=== PATIENT | female | born 1985 | race African-American/Black ===

== ENCOUNTER 2019-08-07 15:55 | Outpatient (CLI) | payer OTHER, MEDICAID, SELFPAY ==
--- NOTE | ~2019-08-07 | US_ITS ---
EXAMINATION: US OB follow up DATE: 08/07/2019 16:29 INDICATION: Follow-up subchorionic hemorrhage. TECHNIQUE: Real-time transabdominal obstetric ultrasound. FINDINGS: Comparison to multiple prior studies sequentially, with oldest reviewed study dated 2018. There is a single living fetus in vertex presentation. The placenta is posterior without placenta pr evia. Placental margin to the cervix is 1.7 cm. cardiac activity and movement is noted with a heart rate of 169 beats per minute. T he amniotic fluid volume is normal. SOFIYA measures 10.2 cm. No evidence for residual subchorionic hemor rhage on the current study. The following biometric data were obtained: BPD: 32mm corresponds to gestational age 16 weeks 0 days. Head circumference: 119mm corresponds to gestational age 15 weeks 6 days. Abdominal circumference: 96mm corresponds to gestational age 15 weeks 5 days. Femur length: 19mm corresponds to gestational age 15 weeks 4 days. Head circumference to abdominal circumference ratio: 1.23 normal for gestational age is 1.06-1.35. Estimated weight: 131grams +/- 20grams.] IMPRESSION: 1. Single living fetus in vertex presentation presentation with an estimated gestational age of 15 w eeks 5 days by inititial ultrasound. Appropriate interval growth. 2. Low-lying posterior placenta measuring 1.7 cm to the cervix. 3: Interval resolution of subchorionic hemorrhage.. Reviewed, dictated and finalized at location A. [facility] PROFESSOR OF GEOLOGY IMPRESSION: 1. Single living fetus in vertex presentation presentation with an estimated g estational age of 15 weeks 5 days by inititial ultrasound. Appropriate interva l growth. 2. Low-lying posterior placenta measuring 1.7 cm to the cervix. 3: Interval resolution of subchorionic hemorrhage..
== END 2019-08-07 15:56 | disposition home or self-care (01) ==
PROVIDERS: PCP Family Medicine; Visit Provider Obstetrics & Gynecology
DX: O36.8911 Maternal care for other specified fetal problems, first trimester, fetus 1 (principal); O44.42 Low lying placenta NOS or without hemorrhage, second trimester; Z3A.15 15 weeks gestation of pregnancy
CPT/HCPCS: 76816

== ENCOUNTER 2019-12-18 10:20 | Outpatient (CLI) | payer OTHER, MEDICAID, SELFPAY ==
[2019-12-18 10:45] VITALS: BP 133/89; PULSE 91
[2019-12-18 11:01] VITALS: BP 138/82; PULSE 92
[2019-12-18 11:17] LABS: Basophils Percent Auto 0.3 % (0.2-1.2); Eosinophils Absolute Auto 0.2 K/mm3 (0-0.3); Eosinophils Percent Auto 2.5 % (0-4.4); Hematocrit 32.7 % (37.0-47.0); Hemoglobin 10.2 g/dL (12.0-15.0); Immature Granulocyte Absolute 0.04 K/mm3 (0.00-0.031); Immature Granulocyte Percent A 0.6 % (0-0.5); Lymphocytes Absolute Auto 1.78 K/mm3 (0.9-3.2); Lymphocytes Percent Auto 25.9 % (18.3-44.2); Mean Corpuscular HGB Conc 31.2 g/dl (32-36); Mean Corpuscular Hemoglobin 27.6 pg (26-34); Mean Corpuscular Volume 88.4 fl (80-100); Mean Platelet Volume 9.5 fl (7.4-10.4); Monocytes Absolute Auto 0.9 K/mm3 (0.1-0.6); Monocytes Percent Auto 13.5 % (2.6-8.5); Neutrophils Absolute Auto 3.9 K/mm3 (1.3-6.7); Neutrophils Percent Auto 57.2 % (45.5-73.1); Platelet Count Result 245 k/mm3 (150-375); Red Cell Distribution Width 14.6 % (11.5-14.5); White Blood Count 6.9 K/mm3 (4.5-10.0)
[2019-12-18 11:31] LABS: Alanine Aminotransferase 8 U/L (4-35); Albumin Level 3.4 g/dL (3.5-5.1); Alkaline Phosphatase 70 U/L (38-126); Aspartate Amino Transferase 23 U/L (14-36); Bilirubin,Total 0.3 mg/dL (0.2-1.3); Blood Urea Nitrogen 2 mg/dL (7-17); Calcium 8.9 mg/dL (8.4-10.2); Carbon Dioxide 26 mmol/L (22-30); Chloride 105 mmol/L (98-107); Estimated Glomerular Filt Rate > 60; Glucose 76 mg/dL (65-105); Potassium 4.1 mmol/L (3.4-5.0); Sodium 136 mmol/L (137-145); Uric Acid 3.4 mg/dL (2.5-7.5)
[2019-12-18 12:10] LABS: Creatinine Urine 129.4 mg/dL; Total Protein Urine Random 10 mg/dL
[2019-12-18 12:36] VITALS: BP 148/86; PULSE 92
[2019-12-18 12:44] LABS: Add Urine Microscopic? YES; Appearance Urine Cloudy (Clear); Bacteria Urine 1+ /hpf; Bilirubin Urine Negative (Negative); Blood Urine Negative (Negative); Color Urine Yellow (Yellow); Glucose Urine UA Negative (Negative); Ketones Urine Negative (Negative); Leukocyte Esterase Ur Negative LEU/UL (NEGATIVE); Mucus Urine Rare /lpf; Nitrate Urine Negative (Negative); Protein Urine 1+ mg/dL (Negative); RBC Urine 0-2 /hpf (0-2); Specific Grav Ur 1.017 (1.001-1.035); Squamous Epithelial Cell Urine Many /hpf (Few); Transitional Epi Cells Urine Rare /hpf (None Seen); Urobilinogen Urine Negative mg/dL (<2.0)
--- NOTE | 2019-12-18 12:53 | PC.NURSE ---
Dr Garcia notified of normal lab results and reactive NST and BP's. 24 hour urine ordered.
--- NOTE | 2019-12-18 13:08 | PM.OBTRLD ---
OB - Triage/Final Diagnosis Evaluation Laboratory results: Laboratory Tests 12/18/19 12/18/19 12/18/19 11:08 11:08 11:44 WBC 6.9 RBC 3.70 L Hgb 10.2 L Hct 32.7 L MCV 88.4 MCH 27.6 MCHC 31.2 L RDW 14.6 H Plt Count 245 MPV 9.5 Immature Gran % (Auto) 0.6 H Neut % (Auto) 57.2 Lymph % (Auto) 25.9 [place] % (Auto) 13.5 H Eos % (Auto) 2.5 Baso % (Auto) 0.3 Lymph # (Auto) 1.78 [place] # (Auto) 0.9 H Eos # (Auto) 0.2 Baso # (Auto) 0.0 Abs Immat Gran (auto) 0.04 H Absolute Neuts (auto) 3.9 Absolute Nucleated RBC 0.0 Nucleated RBC % 0.0 Sodium 136 L Potassium 4.1 Chloride 105 Carbon Dioxide 26 BUN 2 L Creatinine 0.40 L Estim Creat Clear Calc Not Reportable Estimated GFR > 60 Glucose 76 Uric Acid 3.4 Calcium 8.9 Total Bilirubin 0.3 AST 23 ALT 8 Alkaline Phosphatase 70 Total Protein 6.0 L Albumin 3.4 L Urine Color Yellow Urine Appearance Cloudy H Urine pH 6.0 Ur Specific Theodore 1.017 Urine Protein 1+ H Urine Glucose (UA) Negative Urine Ketones Negative Ur Blood (Man) Negative Urine Nitrate Negative Urine Bilirubin Negative Urine Urobilinogen Negative Ur Leukocyte Esterase Negative Urine RBC 0-2 Urine WBC 7-9 H Ur Squamous Epith Cells Many H Ur Transition Epith Cell Rare Urine Bacteria 1+ H Urine Mucus Rare U Random Total Protein Urine Creatinine 12/18/19 11:44 WBC RBC Hgb Hct MCV MCH MCHC RDW Plt Count MPV Immature Gran % (Auto) Neut % (Auto) Lymph % (Auto) [place] % (Auto) Eos % (Auto) Baso % (Auto) Lymph # (Auto) [place] # (Auto) Eos # (Auto) Baso # (Auto) Abs Immat Gran (auto) Absolute Neuts (auto) Absolute Nucleated RBC Nucleated RBC % Sodium Potassium Chloride Carbon Dioxide BUN Creatinine Estim Creat Clear Calc Estimated GFR Glucose Uric Acid Calcium Total Bilirubin AST ALT Alkaline Phosphatase Total Protein Albumin Urine Color Urine Appearance Urine pH Ur Specific Theodore Urine Protein Urine Glucose (UA) Urine Ketones Ur Blood (Man) Urine Nitrate Urine Bilirubin Urine Urobilinogen Ur Leukocyte Esterase Urine RBC Urine WBC Ur Squamous Epith Cells Ur Transition Epith Cell Urine Bacteria Urine Mucus U Random Total Protein 10 Urine Creatinine 129.4 Vital signs: Vital Signs - 24 hr 12/18/19 10:45 12/18/19 11:01 12/18/19 12:36 Pulse Rate 91 92 92 Blood Pressure 133/89 138/82 148/86 H Final Diagnosis (1) Edema during : Code(s): O12.00 - Gestational edema, unspecified trimester Status: Acute (2) HTN in , chronic: Code(s): O10.919 - Unspecified pre-existing hypertension complicating , unspecified trimester Status: Acute
== END 2019-12-18 12:50 | disposition home or self-care (01) ==
LOC: ANHOBOP 10:26 → ANHOBPP 10:28
PROVIDERS: PCP Family Medicine; Visit Provider Obstetrics & Gynecology
DX: O13.9 Gestational [pregnancy-induced] hypertension without significant proteinuria, unspecified trimester (principal); Z3A.00 Weeks of gestation of pregnancy not specified
CPT/HCPCS: 36415; 59025; 80053; 81001; 82570; 84156; 84550; 85025; 87086; 99199

== ENCOUNTER 2019-12-20 22:39 | Observation (INO) | payer OTHER, MEDICAID, SELFPAY ==
[2019-12-20 22:52] VITALS: BMI 41.7
[2019-12-20 23:00] VITALS: BP 146/92; PULSE 84
[2019-12-20 23:31] VITALS: BP 157/100; PULSE 91
[2019-12-20 23:43] VITALS: PULSE 82
[2019-12-20] MEDS: LABETALOL HCL 100 MG TABLET 200 MG PO (23:43)
--- NOTE | 2019-12-20 23:59 | OBADM ---
This patient, Leanne Lopez, admitted to the OB room OB Post 117 for observation. Patient/family oriented to hospital policies and general routines including ID bracelet, bed and alarms, visiting hours, pain management, procedures, bathroom and other care routines, personal items, smoking policy, room service/diet, and visiting hours. Patient/Family are encouraged to report perceived risks to care and to ask questions if they do not understand what they are told or what they should do.
[2019-12-21] VITALS (8 sets, daily range): BP systolic 110–152; BP diastolic 61–104; PULSE 86–92
[2019-12-21] MEDS: LABETALOL HCL 100 MG TABLET PO (01:50)
--- NOTE | 2019-12-31 07:51 | PM.OBTRLD ---
OB - Triage/Final Diagnosis Final Diagnosis (1) Vaginal bleeding during : Code(s): O46.90 - Antepartum hemorrhage, unspecified, unspecified trimester Status: Acute
== END 2019-12-21 03:22 | disposition home or self-care (01) ==
PROVIDERS: Admitting Provider Family Medicine; PCP Family Medicine; Visit Provider Family Medicine
DX: O46.93 Antepartum hemorrhage, unspecified, third trimester (principal); Z3A.35 35 weeks gestation of pregnancy
CPT/HCPCS: A9270; G0378; G0379

== ENCOUNTER 2019-12-31 22:00 | Outpatient (CLI) | payer OTHER, MEDICAID, SELFPAY ==
[2019-12-31 23:25] VITALS: BP 138/110; PULSE 90
== END 2019-12-31 23:25 | disposition home or self-care (01) ==
PROVIDERS: PCP Family Medicine; Visit Provider Obstetrics & Gynecology
DX: O42.90 Premature rupture of membranes, unspecified as to length of time between rupture and onset of labor, unspecified weeks of gestation (principal); Z3A.00 Weeks of gestation of pregnancy not specified
CPT/HCPCS: 59025; 84112

== ENCOUNTER 2020-01-08 11:04 | Outpatient (CLI) | payer OTHER, MEDICAID, SELFPAY ==
[2020-01-08 11:20] VITALS: BP 165/95; PULSE 92
[2020-01-08 12:39] VITALS: PULSE 90
[2020-01-08] MEDS: LABETALOL HCL 100 MG TABLET 300 MG PO (12:39)
[2020-01-08 13:10] LABS: Basophils Percent Auto 0.1 % (0.2-1.2); Eosinophils Absolute Auto 0.1 K/mm3 (0-0.3); Eosinophils Percent Auto 1.6 % (0-4.4); Hematocrit 33.8 % (37.0-47.0); Hemoglobin 10.6 g/dL (12.0-15.0); Immature Granulocyte Absolute 0.08 K/mm3 (0.00-0.031); Immature Granulocyte Percent A 1.2 % (0-0.5); Lymphocytes Absolute Auto 1.58 K/mm3 (0.9-3.2); Lymphocytes Percent Auto 23.1 % (18.3-44.2); Mean Corpuscular HGB Conc 31.4 g/dl (32-36); Mean Corpuscular Hemoglobin 28.3 pg (26-34); Mean Corpuscular Volume 90.1 fl (80-100); Mean Platelet Volume 9.9 fl (7.4-10.4); Monocytes Percent Auto 14.8 % (2.6-8.5); Neutrophils Absolute Auto 4.1 K/mm3 (1.3-6.7); Neutrophils Percent Auto 59.2 % (45.5-73.1); Platelet Count Result 237 k/mm3 (150-375); Red Blood Count 3.75 M/mm3 (4.2-5.4); Red Cell Distribution Width 15.2 % (11.5-14.5); White Blood Count 6.8 K/mm3 (4.5-10.0)
[2020-01-08 13:15] LABS: Add Urine Microscopic? YES; Appearance Urine Cloudy (Clear); Bacteria Urine 1+ /hpf; Bilirubin Urine Negative (Negative); Blood Urine Negative (Negative); Color Urine Yellow (Yellow); Glucose Urine UA Negative (Negative); Ketones Urine Negative (Negative); Leukocyte Esterase Ur Trace LEU/UL (NEGATIVE); Mucus Urine Rare /lpf; Nitrate Urine Negative (Negative); Protein Urine 1+ mg/dL (Negative); RBC Urine 0-2 /hpf (0-2); Specific Grav Ur 1.019 (1.001-1.035); Squamous Epithelial Cell Urine Many /hpf (Few); Urobilinogen Urine Negative mg/dL (<2.0)
[2020-01-08 13:20] LABS: Creatinine Urine 143.9 mg/dL; Total Protein Urine Random 11 mg/dL
[2020-01-08 13:21] LABS: Alanine Aminotransferase 11 U/L (4-35); Albumin Level 3.2 g/dL (3.5-5.1); Alkaline Phosphatase 81 U/L (38-126); Aspartate Amino Transferase 25 U/L (14-36); Bilirubin,Total 0.2 mg/dL (0.2-1.3); Blood Urea Nitrogen 5 mg/dL (7-17); Calcium 8.9 mg/dL (8.4-10.2); Carbon Dioxide 28 mmol/L (22-30); Chloride 102 mmol/L (98-107); Estimated Glomerular Filt Rate > 60; Glucose 101 mg/dL (65-105); Potassium 4.1 mmol/L (3.4-5.0); Sodium 134 mmol/L (137-145); Uric Acid 3.4 mg/dL (2.5-7.5)
[2020-01-08 14:26] VITALS: PULSE 89
[2020-01-08] MEDS: LABETALOL HCL 100 MG TABLET PO (14:26)
[2020-01-08 16:05] VITALS: BP 165/95; PULSE 92
== END 2020-01-08 16:15 | disposition home or self-care (01) ==
PROVIDERS: Obstetrics & Gynecology Gynecology; PCP Family Medicine; Visit Provider Obstetrics & Gynecology
DX: O13.9 Gestational [pregnancy-induced] hypertension without significant proteinuria, unspecified trimester (principal)
CPT/HCPCS: 36415; 59025; 80053; 81001; 82570; 84156; 84550; 85025; A9270

== ENCOUNTER 2020-01-08 11:14 | Outpatient (RCR) | payer OTHER, MEDICAID, SELFPAY ==
[2020-01-01 11:34] VITALS: BP 143/90; PULSE 991
== END 2020-01-12 13:51 | disposition home or self-care (01) ==
LOC: ANHOBOP 11:14
PROVIDERS: PCP Family Medicine; Visit Provider Obstetrics & Gynecology
DX: O76 Abnormality in fetal heart rate and rhythm complicating labor and delivery (principal); Z3A.37 37 weeks gestation of pregnancy
CPT/HCPCS: 59025; A9270; J0131; J2274; J2590

== ENCOUNTER 2020-01-11 07:30 | Inpatient (IN) | payer OTHER, MEDICAID, SELFPAY ==
[2020-01-11] VITALS (57 sets, daily range): BP systolic 93–156; BP diastolic 32–123; PULSE 25–117; RESP 16–18; TEMP 36.1–36.4; O2SAT 71–100; BMI 44.4
[2020-01-11 07:52] LABS: Glucose Point of Care 99 (65-105)
--- NOTE | 2020-01-11 07:56 | LDADM ---
This patient, Leanne Lopez, was admitted to Labor/Delivery/Recovery 120 on 01/11/20 at 07:30. Plans for labor, pain management and were discussed with patient. Patient/family oriented to hospital policies and general routines including ID bracelet, bed and alarms, visiting hours, pain management, procedures, bathroom and other care routines, personal items, smoking policy, room service/diet and guest tray routines, security routines, and visiting hours. Patient/Family are encouraged to report perceived risks to care and to ask questions if they do not understand what they are told or what they should do. See OBIX for further documentation.
[2020-01-11] MEDS: LACTATED RINGERS 1,000 ML 125 ML IV CONT ×2 (08:00→08:27)
[2020-01-11 08:06] LABS: Basophils Percent Auto 0.4 % (0.2-1.2); Eosinophils Absolute Auto 0.1 K/mm3 (0-0.3); Eosinophils Percent Auto 1.8 % (0-4.4); Hematocrit 35.5 % (37.0-47.0); Hemoglobin 10.8 g/dL (12.0-15.0); Immature Granulocyte Absolute 0.02 K/mm3 (0.00-0.031); Immature Granulocyte Percent A 0.4 % (0-0.5); Lymphocytes Absolute Auto 1.42 K/mm3 (0.9-3.2); Lymphocytes Percent Auto 26.1 % (18.3-44.2); Mean Corpuscular HGB Conc 30.4 g/dl (32-36); Mean Corpuscular Hemoglobin 27.6 pg (26-34); Mean Corpuscular Volume 90.6 fl (80-100); Mean Platelet Volume 9.7 fl (7.4-10.4); Monocytes Absolute Auto 0.8 K/mm3 (0.1-0.6); Monocytes Percent Auto 14.9 % (2.6-8.5); Neutrophils Absolute Auto 3.1 K/mm3 (1.3-6.7); Neutrophils Percent Auto 56.4 % (45.5-73.1); Platelet Count Result 233 k/mm3 (150-375); Red Blood Count 3.92 M/mm3 (4.2-5.4); White Blood Count 5.4 K/mm3 (4.5-10.0)
--- NOTE | 2020-01-11 08:16 | WPDANESEPPF ---
Anes - Initial Pre Proc Eval Procedure: Operation Date: 01/11/20 09:00 Proposed Procedures p Primary Section - Oliver Garcia MD Date/Time: 01/11/20 08:16 Surgeon: Oliver Garcia MD Pre Op Diagnosis: C Section Patient Data Age: 34 Gender: F Height: 5 ft 5 in Weight: 121.1 kg Last Vital Signs Pulse 88 01/11/20 08:01 BP 151/96 H 01/11/20 08:01 Allergies Allergy/AdvReac Type Severity Reaction Status Date / Time banana Allergy Unknown RESPIR. Verified 07/07/19 15:35 DISTRESS/ORAL SWELLING iodine Allergy Unknown Unknown Verified 07/07/19 15:35 latex Allergy Unknown Unknown Verified 07/07/19 15:35 peanut Allergy Unknown Unknown Verified 07/07/19 15:35 Home Medications Medication Instructions Recorded Confirmed Type PNV cmb#95-ferrous fumarate-FA 1 tablet PO DAILY 07/07/19 01/11/20 History [] cetirizine [Zyrtec] 10 mg PO DAILY 07/07/19 01/11/20 History montelukast [Singulair] 10 mg PO DAILY 07/07/19 01/11/20 History budesonide-formoterol HFA 80 2 puff INHALATION Q12H #10.2 gm 10/23/19 01/11/20 Rx mcg-4.5 mcg/actuation aerosol inhaler albuterol sulfate 2.5 mg INHALATION Q4-6H PRN #180 ml 11/25/19 01/11/20 Rx albuterol sulfate 90 mcg/actuation 1 inh INHALATION Q4-6H PRN #1 each 11/27/19 01/11/20 Rx breath activated powder inhaler,sensor Humulin N NPH U-100 Insulin 4 unit SUBCUT HS 12/20/19 01/11/20 History budesonide 1 inhalation INHALATION Q12H PRN 12/20/19 01/11/20 History labetalol 300 mg PO BID #0 tablet 12/21/19 01/11/20 Rx Laboratory Tests 01/11/20 01/11/20 01/11/20 07:42 07:42 07:44 WBC 5.4 K/mm3 K/mm3 (4.5-10.0) RBC 3.92 M/mm3 L M/mm3 (4.2-5.4) Hgb 10.8 g/dL L g/dL (12.0-15.0) Hct 35.5 % L % (37.0-47.0) MCV 90.6 fl fl (80-100) MCH 27.6 pg pg (26-34) MCHC 30.4 g/dl L g/dl (32-36) RDW 15.0 % H % (11.5-14.5) Plt Count 233 k/mm3 k/mm3 (150-375) MPV 9.7 fl fl (7.4-10.4) Immature Gran % (Auto) 0.4 % % (0-0.5) Neut % (Auto) 56.4 % % (45.5-73.1) Lymph % (Auto) 26.1 % % (18.3-44.2) [place] % (Auto) 14.9 % H % (2.6-8.5) Eos % (Auto) 1.8 % % (0-4.4) Baso % (Auto) 0.4 % % (0.2-1.2) Lymph # (Auto) 1.42 K/mm3 K/mm3 (0.9-3.2) [place] # (Auto) 0.8 K/mm3 H K/mm3 (0.1-0.6) Eos # (Auto) 0.1 K/mm3 K/mm3 (0-0.3) Baso # (Auto) 0.0 K/mm3 K/mm3 (0.0-0.1) Abs Immat Gran (auto) 0.02 K/mm3 K/mm3 (0.00-0.031) Absolute Neuts (auto) 3.1 K/mm3 K/mm3 (1.3-6.7) Absolute Nucleated RBC 0.0 K/mm3 K/mm3 (0.0-0.012) Nucleated RBC % 0.0 % % (0.0-0.2) POC Capillary Glucose 99 mg/dl mg/dl (65-105) RPR Pending Patient hx anesthesia problems: none Family hx anesthesia problems: none [facility] Past Medical History Medical History Abnormal uterine bleeding Asthma Eczema Edema during H/O delivery by vacuum extraction, currently HTN in , chronic Hypertension Pneumonia Surgical History Surgical History History of bladder surgery bladder sling Family History Family History Father Hypertension Mother Patient's mother is in good health Other Asthma Social History Social History Smoking status: Never smoker Alcohol intake: never Substance use: never Gender identity (if verbalized by the patient): Female Spiritual care concerns: No Anes - Eval Final PreProcedure Day of Procedure 01/11/20 08:16 Patient weight: morbidly obese Heart: regular rate and rhythm Lungs: clear to auscultation Airway:
--- NOTE | 2020-01-11 08:20 | PM.IMHP ---
H&P: HPI History of Present Illness Chief complaint: C Section Narrative: Leanne Lopez is a 34 year old female @ 38 weeks by ultrasound at 7 weeks for an EDC of 01/24/2020. care complicated by chtn asthma, HSV and A2GDM. Patient scheduled for a primary csection due to prior bladder surgery(tot and anterior repair) Review of Systems Cardiovascular: Cardiovascular: Reports pedal edema and Reports leg edema PMFSH Past Medical History Medical History (Updated 01/11/20 @ 08:30 by Oliver Garcia MD) Abnormal uterine bleeding Asthma Eczema Edema during Gestational diabetes H/O delivery by vacuum extraction, currently HTN in , chronic Hypertension Pneumonia Surgical History Surgical History (Updated 01/11/20 @ 08:30 by Oliver Garcia MD) History of bladder surgery bladder sling Family History Family History Father Hypertension Mother Patient's mother is in good health Other Asthma Social History Social History (Updated 01/11/20 @ 08:26 by Oliver Garcia MD) Smoking status: Former smoker Tobacco type: cigarettes Alcohol intake: never Substance use: never Gender identity (if verbalized by the patient): Female Spiritual care concerns: No Meds Home Medications and Allergies Home Medications Medication Instructions Recorded Confirmed Type PNV cmb#95-ferrous fumarate-FA 1 tablet PO DAILY 07/07/19 01/11/20 History [] cetirizine [Zyrtec] 10 mg PO DAILY 07/07/19 01/11/20 History montelukast [Singulair] 10 mg PO DAILY 07/07/19 01/11/20 History budesonide-formoterol HFA 80 2 puff INHALATION Q12H #10.2 gm 10/23/19 01/11/20 Rx mcg-4.5 mcg/actuation aerosol inhaler albuterol sulfate 2.5 mg INHALATION Q4-6H PRN #180 ml 11/25/19 01/11/20 Rx albuterol sulfate 90 mcg/actuation 1 inh INHALATION Q4-6H PRN #1 each 11/27/19 01/11/20 Rx breath activated powder inhaler,sensor Humulin N NPH U-100 Insulin 4 unit SUBCUT HS 12/20/19 01/11/20 History budesonide 1 inhalation INHALATION Q12H PRN 12/20/19 01/11/20 History labetalol 300 mg PO BID #0 tablet 12/21/19 01/11/20 Rx Allergies Allergy/AdvReac Type Severity Reaction Status Date / Time banana Allergy Unknown RESPIR. Verified 07/07/19 15:35 DISTRESS/ORAL SWELLING iodine Allergy Unknown Unknown Verified 07/07/19 15:35 latex Allergy Unknown Unknown Verified 07/07/19 15:35 peanut Allergy Unknown Unknown Verified 07/07/19 15:35 Vital Signs Vital Signs - 24 hr 01/11/20 07:42 01/11/20 08:01 01/11/20 08:16 Pulse Rate 95 88 88 Blood Pressure 156/103 H 151/96 H 147/89 H Exam Const: General: no acute distress Resp: Auscultation: clear to auscultation bilaterally Cardio: Rhythm: regular rhythm GI: GI Palp: Yes Soft to palpation Other: Gravid fundal height 42 : External Female Exam: normal external appearance Neuro: General: gait normal H&P: Results Labs Labs: Short CBC 01/11/20 Range/Units 07:42 WBC 5.4 (4.5-10.0) K/mm3 Hgb 10.8 L (12.0-15.0) g/dL Hct 35.5 L (37.0-47.0) % Plt Count 233 (150-375) k/mm3 Assessment and Plan Assessment and plan (1) HTN in , chronic: Code(s): O10.919 - Unspecified pre-existing hypertension complicating , unspecified trimester Status: Acute (2) Gestational diabetes: Code(s): O24.419 - Gestational diabetes mellitus in , unspecified control Status: Acute (3) History of bladder surgery: Code(s): Z98.890 - Other specified postprocedural states Status: Acute Assessment and Plan: Patient scheduled for a primary csection due to prior bladder surgery 2nd to vaginal . RIsk and benefits reviewed with patient in detail.
[2020-01-11] MEDS: ceFAZolin 3 GM/D5W 100 ML 100 ML IVPB (08:48)
--- NOTE | 2020-01-11 09:51 | PM.OBPRVD ---
OB - Delivery Note Procedure Delivery date: 01/11/20 Procedure: Procedures Operation Date: 01/11/20 09:00 <No data on this case meets the specified criteria> primary LTCS events: Gestational Diabetes Intrapartal events: None Route of delivery: Anesthesia type: Spinal Disposition: observation Baby Date of : 01/11/20 Time of : 09:19 Weeks of gestation at delivery: 38 Infant gender: Male Weight (pounds): 8 Weight (ounces): 0 presentation: vertex position: Left Occiput Anterior Placenta delivery description: Spontaneous cord vessel description: 3 Vessels and Clamped/Cut score one minute: 9 score five minutes: 9
--- NOTE | 2020-01-11 09:54 | PM.DS ---
DS: Admitting Diagnosis Admitting Diagnosis Admitting Diagnosis: Unspecified pre-existing hypertension complicating , unspecified trimester DS: Discharge Diagnosis Discharge Diagnosis (1) History of bladder surgery: Code(s): Z98.890 - Other specified postprocedural states Status: Acute (2) Gestational diabetes: Code(s): O24.419 - Gestational diabetes mellitus in , unspecified control Status: Acute (3) HTN in , chronic: Code(s): O10.919 - Unspecified pre-existing hypertension complicating , unspecified trimester Status: Acute DS: Summary Time Spent with Patient Time attestation: Total time spent providing and/or coordinating discharge services: DS: Data Data Completed and Pending Labs on day of discharge: Labs from last 24 hours 01/11/20 01/11/20 01/11/20 07:44 07:42 07:42 WBC RBC Hgb Hct MCV MCH MCHC RDW Plt Count MPV Immature Gran % (Auto) Neut % (Auto) Lymph % (Auto) [place] % (Auto) Eos % (Auto) Baso % (Auto) Lymph # (Auto) [place] # (Auto) Eos # (Auto) Baso # (Auto) Abs Immat Gran (auto) Absolute Neuts (auto) Absolute Nucleated RBC Nucleated RBC % POC Capillary Glucose 99 RPR Pending Blood Type B Positive Antibody Screen Negative 01/11/20 07:42 WBC 5.4 RBC 3.92 L Hgb 10.8 L Hct 35.5 L MCV 90.6 MCH 27.6 MCHC 30.4 L RDW 15.0 H Plt Count 233 MPV 9.7 Immature Gran % (Auto) 0.4 Neut % (Auto) 56.4 Lymph % (Auto) 26.1 [place] % (Auto) 14.9 H Eos % (Auto) 1.8 Baso % (Auto) 0.4 Lymph # (Auto) 1.42 [place] # (Auto) 0.8 H Eos # (Auto) 0.1 Baso # (Auto) 0.0 Abs Immat Gran (auto) 0.02 Absolute Neuts (auto) 3.1 Absolute Nucleated RBC 0.0 Nucleated RBC % 0.0 POC Capillary Glucose RPR Blood Type Antibody Screen Discharge Plan Discharge Attending physician on discharge: Oliver Garcia Consulting providers: Frederick Salgado Discharging Clinician: Oliver Garcia Patient Disposition: Home, Self-Care Activity: may shower Diet: regular Wound Care Instructions: incision open to air Discharge Instructions: Education: Mom and Baby Guide Given to: patient Follow-Up: Call your delivering provider's office for an appointment to be seen in: 1 week Mom and baby should come to the [facility] for the follow-up appointment. Appointment Date/Time: Saturday01/15/2020 at 10:00 am Call [phone] if you are unable to keep your appointment time. BREAST CARE: 1. Wear a snug supportive bra. 2. For engorgement discomfort: Breast Feeding: A. Apply warm moist washcloths B. Express milk as needed to relieve engorgement C. Wear loose clothing Bottle Feeding: A. May apply ice packs 3. For sore nipples: A. Identify correct latch-on B. Apply warm moist washcloths before and after nursing C. Air dry nipples after nursing D. May apply Lansinoh cream to nipples ABDOMINAL INCISION: (if applicable) 1. Allow incision to air dry 2. Do NOT use lotions for powders on your incision 3. When showering, allow soap and water to run over the incision, but do not wash incision PERINEAL CARE: 1. Until bleeding stops, use your malu bottle after urinating 2. Change your pad frequently throughout the day 3. No tub baths until seen by your physician - You may shower ACTIVITY: 1. Rest as much as possible. 2. Do not exercise or lift anything heavier than your baby (such as laundry or other children.) 3. Avoid stairs or driving as much as possible. 4. Do not put anything into the vagina. No douching, tampons, or sexual activity until seen by physician. NOTIFY PHYSICIAN IF YOU HAVE ANY QUESTIONS OR IF ANY OF THE FOLLOWING SYMPTOMS OCCUR: 1. If your episiotomy or incision becomes red, swollen,
[2020-01-11 10:02] LABS: Rapid Plasma Reagin Non-Reactive (NonReactive)
--- NOTE | 2020-01-11 13:13 | PC.NURSE ---
1112 Pt admitted to room 286 per stretcher from labor and delivery after primary delivery of viable male infant at [address] Garcia. Mother is a and is choosing to breast feed . Baby in Level II nursery at this time. FOB present; couple oriented to room, staffing and procedures. Admission folder reviewed. Pt's VSS and assessment WNL.
[2020-01-11] MEDS: IBUPROFEN 600 MG TABLET PO ×2 (13:39→21:16)
--- NOTE | 2020-01-11 15:18 | OP_ITS ---
DATE OF PROCEDURE: 01/11/2020 PREOPERATIVE DIAGNOSIS: History of bladder sling and anterior repair. POSTOPERATIVE DIAGNOSIS: History of bladder sling and anterior repair. PROCEDURE PERFORMED: Primary low transverse section. ANESTHESIA: Spinal. COMPLICATIONS: None. ESTIMATED BLOOD LOSS: 530 cc. URINE OUTPUT: 20 cc of clear urine. DESCRIPTION OF PROCEDURE: The patient was taken to operating room with IV running. She was prepared and draped in a normal sterile fashion and placed in a supine position with a leftward tilt. A Pfannenstiel skin incision was then made with a scalpel, carried down to the underlying layer of fascia. This fascial incision was then extended bilaterally with Duncan scissors. Superior aspect of the incision was grasped with Idris clamps, elevated, dissected off the rectus muscles. Inferior aspect of the incision was grasped with Idris clamps, elevated, dissected off the rectus muscles. Rectus muscles were in the midline. The peritoneum was entered bluntly and the bladder blade was inserted. The vesicouterine peritoneum was grasped with peans and entered sharply with Metzenbaum scissors. A bladder flap was created sharply and grossly. The bladder blade was reinserted. Lower uterine segment was incised in a transverse fashion with the scalpel. Membranes ruptured, clear fluid. head was delivered atraumatically. The fetus was handed off to waiting nurse. Cord blood was obtained. Cord gases obtained. Placenta delivered spontaneously. The uterus was exteriorized and cleared of all clots and debris. The uterine incision was closed with 0 Monocryl in a running locked fashion. Second layer of the same suture was used to imbricate this incision. Uterus was returned to the abdomen. Gutters were cleared of all clots and debris and irrigated copiously. The uterine incision was covered with Interceed in a T-fashion. Muscles were examined for hemostasis. Fascia was closed with 0 Vicryl in a running fashion. Subcutaneous tissue was irrigated and closed with 3-0 plain gut and the skin was closed with 4-0 Vicryl on a Rosendo needle. Sponge, lap, and needle counts were correct x2. The patient tolerated this procedure well. D I MT: [facility]
[2020-01-11] MEDS: DEXTROSE 5%/0.45% SOD CHL 1,000 ML 125 ML IV CONT (16:47)
[2020-01-11] MEDS: LABETALOL HCL 100 MG TABLET 300 MG PO (16:49)
[2020-01-11] MEDS: LANOLIN (LANSINOH) 7.5 GM CREAM 1 APPLIC TOPICAL (16:50)
--- NOTE | 2020-01-11 19:09 | PC.NURSE ---
1744 pt's catheter not draining, output is low. attempted to adjust catheter, and move pt unsuccessful. Bladder scan used, and difficult to assess pt's bladder volume; result showed about 38cc. pt has had good po intake, and IV's continued as ordered. Pt states she is not uncomfortable. 1839 Dr. Garcia notified of the above; also advised of pt's VS this afternoon, low pulse ox when sleeping, and WNL when awake; confirmed Labetolol 300 mg BID; ordered to observe pt's output one more hour; if not at least 30cc urine output, pt is to have Lasix 10mg IVP. Orders communicated with night nurse.
[2020-01-11] MEDS: FUROSEMIDE INJ 40 MG/4 ML VIAL 10 MG IV PUSH (20:51)
[2020-01-11] MEDS: ALBUTEROL SULFATE NEB 2.5 MG/3 ML INH INHALATION (21:12)
[2020-01-11] MEDS: ACETAMINOPHEN 325 MG TABLET 650 MG PO (21:16)
[2020-01-12] MEDS: DEXTROSE 5%/0.45% SOD CHL 1,000 ML 125 ML IV CONT (01:10)
--- NOTE | 2020-01-12 04:15 | PM.OBPNVD ---
OB - PN: Subj Subjective Date/time seen: 01/12/20 04:15 patient reports feels okay just very swollen. denies headache pain controlled with PRN pain meds. Patient states urine began to decrease over the weekend felt it was darker OB - PN: Obj Data Labs CBC & Chem 7: 01/11/20 07:42 Labs: Laboratory Results - last 24 hr 01/11/20 01/11/20 01/11/20 07:42 07:42 07:42 WBC 5.4 RBC 3.92 L Hgb 10.8 L Hct 35.5 L MCV 90.6 MCH 27.6 MCHC 30.4 L RDW 15.0 H Plt Count 233 MPV 9.7 Immature Gran % (Auto) 0.4 Neut % (Auto) 56.4 Lymph % (Auto) 26.1 [place] % (Auto) 14.9 H Eos % (Auto) 1.8 Baso % (Auto) 0.4 Lymph # (Auto) 1.42 [place] # (Auto) 0.8 H Eos # (Auto) 0.1 Baso # (Auto) 0.0 Abs Immat Gran (auto) 0.02 Absolute Neuts (auto) 3.1 Absolute Nucleated RBC 0.0 Nucleated RBC % 0.0 POC Capillary Glucose RPR Non-reactive Blood Type B Positive Antibody Screen Negative 01/11/20 07:44 WBC RBC Hgb Hct MCV MCH MCHC RDW Plt Count MPV Immature Gran % (Auto) Neut % (Auto) Lymph % (Auto) [place] % (Auto) Eos % (Auto) Baso % (Auto) Lymph # (Auto) [place] # (Auto) Eos # (Auto) Baso # (Auto) Abs Immat Gran (auto) Absolute Neuts (auto) Absolute Nucleated RBC Nucleated RBC % POC Capillary Glucose 99 RPR Blood Type Antibody Screen OB - PN A/P Assessment and Plan (1) HTN in , chronic: Code(s): O10.919 - Unspecified pre-existing hypertension complicating , unspecified trimester Status: Acute Assessment and Plan: continue with Labetalol 300 mg po bid s/p lasix 10 mg x1 due to decrease urine output improved with medication. check PRE labs this am. May need magnesium. (2) Edema during : Code(s): O12.00 - Gestational edema, unspecified trimester Status: Acute Time Spent With Patient Time: Total time spent is greater than 50% in coordination of care (as documented) at patient's floor/unit and/or counseling patient: Exam Const: General: comfortable GI: Other: soft edematous, incision clean dry and intact Extrem: Right lower extremity: edema Left lower extremity: edema
[2020-01-12 04:40] VITALS: BP 119/61; PULSE 87; RESP 16; TEMP 36.6; O2SAT 99
[2020-01-12 05:13] LABS: Basophils Percent Auto 0.1 % (0.2-1.2); Eosinophils Absolute Auto 0.1 K/mm3 (0-0.3); Eosinophils Percent Auto 1.7 % (0-4.4); Hematocrit 30.7 % (37.0-47.0); Hemoglobin 9.4 g/dL (12.0-15.0); Immature Granulocyte Absolute 0.04 K/mm3 (0.00-0.031); Immature Granulocyte Percent A 0.5 % (0-0.5); Lymphocytes Absolute Auto 1.49 K/mm3 (0.9-3.2); Mean Corpuscular HGB Conc 30.6 g/dl (32-36); Mean Corpuscular Hemoglobin 27.9 pg (26-34); Mean Corpuscular Volume 91.1 fl (80-100); Mean Platelet Volume 9.9 fl (7.4-10.4); Monocytes Percent Auto 12.9 % (2.6-8.5); Neutrophils Absolute Auto 5.2 K/mm3 (1.3-6.7); Neutrophils Percent Auto 65.8 % (45.5-73.1); Platelet Count Result 204 k/mm3 (150-375); Red Blood Count 3.37 M/mm3 (4.2-5.4); Red Cell Distribution Width 14.6 % (11.5-14.5); White Blood Count 7.9 K/mm3 (4.5-10.0)
[2020-01-12 05:22] LABS: Alanine Aminotransferase 12 U/L (4-35); Albumin Level 2.5 g/dL (3.5-5.1); Alkaline Phosphatase 72 U/L (38-126); Aspartate Amino Transferase 55 U/L (14-36); Bilirubin,Total 0.1 mg/dL (0.2-1.3); Blood Urea Nitrogen 10 mg/dL (7-17); Calcium 8.1 mg/dL (8.4-10.2); Carbon Dioxide 26 mmol/L (22-30); Chloride 99 mmol/L (98-107); Estimated CRCL calculation 146 ml/min; Estimated Glomerular Filt Rate > 60; Glucose 173 mg/dL (65-105); Lactate Dehydrogenase 622 U/L (313-618); Potassium 4.4 mmol/L (3.4-5.0); Sodium 130 mmol/L (137-145); Uric Acid 4.2 mg/dL (2.5-7.5)
--- NOTE | 2020-01-12 07:47 | WPDANLDPN2 ---
Anes-Prog Note L&D Date/Time: 01/12/20 07:47 Comfortable throughout: section Neuraxial method: spinal Epidural/Spinal procedure site: clean & non-tender Neuro status: Neuro function grossly intact. Cardiovascular status: normal Respiratory status: normal Airway patency: baseline Mental status: baseline Post-Op hydration status: normal Vital Signs: Last Vital Signs Temp 36.6 C 01/12/20 04:40 Pulse 87 01/12/20 04:40 Resp 16 01/12/20 04:40 BP 119/61 01/12/20 04:40 Pulse Ox 99 01/12/20 04:40 I/O: Intake & Output 01/11/20 01/11/20 01/12/20 15:59 23:59 07:59 Intake Total 2100 1600 1850 Output Total 110 65 400 Balance 1989 1535 1450 Post-procedural complaints: none Patient feedback: Patient satisfied with anesthetic care.
--- NOTE | 2020-01-12 07:48 | WPDANLDNPN2 ---
Anes-Prog Note L&D-Neuraxial Date/Time: 01/12/20 07:48 Neuraxial medications: intrathecal PF morphine Opiod-related complaints: none Patient feedback: Patient satisfied with post-operative pain management.
[2020-01-12 08:05] VITALS: BP 125/84; PULSE 89; RESP 18; TEMP 37.3; O2SAT 100
[2020-01-12 08:56] VITALS: PULSE 70
[2020-01-12] MEDS: LABETALOL HCL 100 MG TABLET 300 MG PO ×2 (08:56→16:54)
[2020-01-12] MEDS: MULTIVIT/MIN/PREN/FOL AC/IRON TABLET 1 TAB PO (08:56)
[2020-01-12] MEDS: SIMETHICONE 80 MG TAB.CHEW PO (08:56)
[2020-01-12] MEDS: POLYSACCHARIDE IRON COMPLEX 150 MG CAPSULE PO ×2 (08:56→16:55)
[2020-01-12] MEDS: IBUPROFEN 600 MG TABLET PO ×3 (08:57→22:59)
[2020-01-12] MEDS: ACETAMINOPHEN 325 MG TABLET 650 MG PO (08:57)
--- NOTE | 2020-01-12 10:00 | PC.NURSE ---
Consulted with patient, reviewed infant feeding cues, frequencies, duration of feedings, feeding elimination flow sheet, and signs of adequate intake. Demonstrated stimulation techniques to wake infant for feeding. Assisted with infant to breast. Reviewed positioning/alignment, holding breast and asymmetrical latch on. Infant was unable to latch correctly. Reviewed signs of a correct latch, effective nursing and suck swallow ratio. Infant was unable to maintain latch without discomfort to mother. Nipple care reviewed. Instructed mother to call out for RN assistance if she is unable to latch infant for feeding or she has discomfort with nursing. Instructed feeding should be initiated three hours from start of last feeding or if feeding cues are noted before. Mother voiced understanding of information shared. Assisted mother with . Attempted to place infant in football hold on right and left breasts using multiple pillows for support. Mother has very large pendulous breasts and has difficulty viewing correct placement of infant. Discussed safety of infant with positioning and . Mother appears to have a varicose vein to top of left breast. Mother states that her breasts have been changing during . Feeding plan remains to attempt to place infant to breast x 15 minutes, pump x15 minutes, and then supplement with Enfamil to infant's satiation. Viewed mother pumping and her right breast fit a 27mm flange and left breast fit at a 30mm flange. Pt able to tolerate >50% suction on pump with no discomfort. Mother had brought in her own 20mm shield to aide with latch. Recommended not using this shield due to incorrect size. Support provided and instructed to call out for further assist if needed.
[2020-01-12 16:54] VITALS: PULSE 70
[2020-01-12 19:42] VITALS: BP 128/82; PULSE 94; RESP 16; TEMP 37.1; O2SAT 98
[2020-01-12] MEDS: BISACODYL 10 MG SUPPOSITORY RECTAL (23:30)
[2020-01-13 08:35] VITALS: BP 144/90; PULSE 98; RESP 16; TEMP 37.3; O2SAT 98
[2020-01-13] MEDS: MULTIVIT/MIN/PREN/FOL AC/IRON TABLET 1 TAB PO (09:39)
[2020-01-13] MEDS: SIMETHICONE 80 MG TAB.CHEW PO ×2 (09:39→17:28)
[2020-01-13] MEDS: MONTELUKAST SODIUM 10 MG TABLET PO (09:39)
[2020-01-13] MEDS: POLYSACCHARIDE IRON COMPLEX 150 MG CAPSULE PO ×2 (09:39→17:27)
[2020-01-13 09:40] VITALS: PULSE 90
[2020-01-13] MEDS: LABETALOL HCL 100 MG TABLET 300 MG PO ×2 (09:40→17:27)
[2020-01-13] MEDS: IBUPROFEN 600 MG TABLET PO ×2 (09:41→17:29)
[2020-01-13 17:27] VITALS: PULSE 70
[2020-01-15 10:30] VITALS: BP 157/89; PULSE 94; RESP 22; TEMP 36.8; O2SAT 100
== END 2020-01-13 19:15 | disposition home or self-care (01) | DRG 787 ==
LOC: ANHLDR 09:55 → ANHOB2 12:18
PROVIDERS: Admitting Provider Obstetrics & Gynecology; PCP Family Medicine; Visit Provider Obstetrics & Gynecology
PROC: 10D00Z1 Extraction of Products of Conception, Low, Open Approach (ICD-10-PCS; CPT 59514; principal; 2020-01-11 09:00)
DX: O99.89 Other specified diseases and conditions complicating pregnancy, childbirth and the puerperium (principal); O98.52 Other viral diseases complicating childbirth; O10.92 Unspecified pre-existing hypertension complicating childbirth; Z37.0 Single live birth; Z3A.38 38 weeks gestation of pregnancy; O99.72 Diseases of the skin and subcutaneous tissue complicating childbirth; L30.9 Dermatitis, unspecified; O99.52 Diseases of the respiratory system complicating childbirth; J45.909 Unspecified asthma, uncomplicated; O99.214 Obesity complicating childbirth; E66.01 Morbid (severe) obesity due to excess calories; O24.429 Gestational diabetes mellitus in childbirth, unspecified control; O12.04 Gestational edema, complicating childbirth; B95.1 Streptococcus, group B, as the cause of diseases classified elsewhere; O99.824 Streptococcus B carrier state complicating childbirth; B00.9 Herpesviral infection, unspecified; Z98.890 Other specified postprocedural states
CPT/HCPCS: 36415; 59025; 80053; 81001; 82570; 83615; 84156; 84550; 85025; 86592; 86850; 86900; 86901; 88307; 94640; A9270; J0131; J0690; J1940; J2274; J2405; J2590; J7120

== ENCOUNTER 2020-01-15 11:14 | Observation (INO) | payer OTHER, MEDICAID, SELFPAY ==
[2020-01-15] VITALS (28 sets, daily range): BP systolic 136–184; BP diastolic 73–110; PULSE 74–91; TEMP 36.9; O2SAT 90–100
--- NOTE | 2020-01-15 11:32 | PC.NURSE ---
Dr. Garcia returned 2nd page and informed pt was here for follow-up appointment and BP was 157/89. BP's for me are 176/118 and 178/116. Pt c/o headache she rates as a 2 out of 10. Denies visual disturbance or epigastric pain. Pt has pitting edema up into her thighs and pt's legs are tender to touch and it looks like she has a spot on the inner calf of each leg that is suspect for cellulitis starting. Pt has pitting edema in her lower abdomen. DTR's 3+ and 1 beat clonus. Pt had her Labetalol 300 mg PO at 0800 this am. Order received for lab work; no additional med orders at this time.
--- NOTE | 2020-01-15 12:03 | PC.NURSE ---
Dr. Garcia in room and updated on BP's. MD examined pt. Headache still a 2 out of 10. Vein blew with attempt at lab draw. MD informed pt hasn't voided since arrival and pt states her urine is still dark in color. Order received for PO Lasix. would like an IV on pt. Called Maira Atkins RN- [facility] for IV start.
[2020-01-15] MEDS: FUROSEMIDE 10 MG TABLET PO (12:35)
--- NOTE | 2020-01-15 12:47 | PC.NURSE ---
Dr Garcia paged.
[2020-01-15 13:04] LABS: Basophils Percent Auto 0.6 % (0.2-1.2); Eosinophils Absolute Auto 0.2 K/mm3 (0-0.3); Hematocrit 32.8 % (37.0-47.0); Immature Granulocyte Absolute 0.03 K/mm3 (0.00-0.031); Immature Granulocyte Percent A 0.4 % (0-0.5); Lymphocytes Absolute Auto 1.77 K/mm3 (0.9-3.2); Lymphocytes Percent Auto 24.5 % (18.3-44.2); Mean Corpuscular HGB Conc 30.5 g/dl (32-36); Mean Corpuscular Hemoglobin 27.8 pg (26-34); Mean Corpuscular Volume 91.1 fl (80-100); Mean Platelet Volume 9.5 fl (7.4-10.4); Monocytes Absolute Auto 0.9 K/mm3 (0.1-0.6); Monocytes Percent Auto 12.7 % (2.6-8.5); Neutrophils Absolute Auto 4.2 K/mm3 (1.3-6.7); Neutrophils Percent Auto 58.8 % (45.5-73.1); Platelet Count Result 317 k/mm3 (150-375); Red Cell Distribution Width 14.6 % (11.5-14.5); White Blood Count 7.2 K/mm3 (4.5-10.0)
--- NOTE | 2020-01-15 13:13 | PC.NURSE ---
Addendum entered by Jada Mckeon RN 01/15/20 18:40: 1313- MD informed IV is in now. Original Note: Dr Garcia notified of BP's, orders received.
[2020-01-15 13:17] LABS: Alanine Aminotransferase 30 U/L (4-35); Alkaline Phosphatase 78 U/L (38-126); Aspartate Amino Transferase 76 U/L (14-36); Bilirubin,Total 0.4 mg/dL (0.2-1.3); Blood Urea Nitrogen 11 mg/dL (7-17); Calcium 8.5 mg/dL (8.4-10.2); Carbon Dioxide 30 mmol/L (22-30); Chloride 103 mmol/L (98-107); Estimated Glomerular Filt Rate > 60; Glucose 79 mg/dL (65-105); Potassium 4.4 mmol/L (3.4-5.0); Sodium 136 mmol/L (137-145); Uric Acid 4.5 mg/dL (2.5-7.5)
[2020-01-15] MEDS: LABETALOL HCL INJ 100 MG/20 ML VIAL 10 MG IV PUSH (13:26)
--- NOTE | 2020-01-15 13:47 | PC.NURSE ---
Dr. Garcia on unit and updated on BP's Informed pt still hasn't voided. Order received for Lasix [address] Garcia didn't want to give a larger dose due to concern regarding pt's milk supply because is really important to her with this .
--- NOTE | 2020-01-15 14:01 | PC.NURSE ---
Dr. Garcia in to talk with pt regarding the Lasix. MD informed pt that if she took a 40 mg dose of Lasix it would help with her urine output and edema faster, but it would probably make it difficult for her milk supply. Pt would prefer the larger dose of Lasix even if it interferes with milk production. Order received.
[2020-01-15] MEDS: FUROSEMIDE INJ 40 MG/4 ML VIAL IV PUSH (14:20)
--- NOTE | 2020-01-15 16:20 | PC.NURSE ---
Dr. Garcia returned page and informed of BP's, headache has resolved, and pt has voided 1750 so far and is now light yellow in color. Order received for Labetalol and Procardia XL.
[2020-01-15] MEDS: NIFEdipine 30 MG TAB.ER.24 PO (16:38)
[2020-01-15] MEDS: LABETALOL HCL 100 MG TABLET 300 MG PO ×2 (16:38→21:51)
--- NOTE | 2020-01-15 18:10 | PC.NURSE ---
When I entered room to check on 1800 BP, noted that a 1730 and 1800 BP's were both elevated. Pt is pretty sure she had just voided prior to each BP. Will recheck in a few minutes. Pt dinner tray here.
--- NOTE | 2020-01-15 18:31 | PC.NURSE ---
Updated Dr. Garcia on maternal assessment, including elevated BP's. Plan of care discussed. Notify Dr. Garcia over night for BP's 160/100 x2 consecutive. Start SCDs on patient.
--- NOTE | 2020-01-15 18:50 | PC.NURSE ---
Plan of care discussed with patient. SCDs explained to patient. SCDs applied.
--- NOTE | 2020-01-15 19:54 | PC.NURSE ---
Updated Dr. Garcia on maternal assessment, including BPs. BP q2hour while awake, c3oxvso while sleeping. SCD intermittent.
[2020-01-15] MEDS: IBUPROFEN 600 MG TABLET PO (20:15)
[2020-01-16] VITALS (18 sets, daily range): BP systolic 132–157; BP diastolic 73–101; PULSE 86–102; RESP 20–22; TEMP 36.8–37.2; O2SAT 97–100; BMI 44.1
[2020-01-16] MEDS: LABETALOL HCL 100 MG TABLET 300 MG PO ×3 (06:31→21:42)
[2020-01-16] MEDS: IBUPROFEN 600 MG TABLET PO ×3 (06:37→21:17)
--- NOTE | 2020-01-16 08:59 | PC.NURSE ---
Dr. Garcia called to check on pt. Informed BP's this am are 140's / 90's. I was just in pt's room to do her BP again and give her Procardia when MD called. Discussed pt's headache this morning that was a 7 and down to a 2 now. Denies visual disturbance, epigastric/RUQ pain. Edema in lower abdomen and thighs, and lower legs have decreased from yesterday, but still has pitting edema in thighs. Pt's only void this am was 300 ml and dark michelle in color. Orders received.
[2020-01-16] MEDS: MULTIVIT/MIN/PREN/FOL AC/IRON TABLET 1 TAB PO (09:05)
[2020-01-16] MEDS: LORATADINE 10 MG TABLET PO (09:06)
[2020-01-16] MEDS: NIFEdipine 30 MG TAB.ER.24 PO (09:07)
--- NOTE | 2020-01-16 09:07 | PC.NURSE ---
Pt still pumping. Assisted pt to allow her arm to relax at side for BP check prior to Procardia.
--- NOTE | 2020-01-16 09:17 | PC.NURSE ---
Pt finished pumping and sitting up to eat breakfast.
[2020-01-16] MEDS: FUROSEMIDE INJ 40 MG/4 ML VIAL IV PUSH ×2 (09:40→15:06)
--- NOTE | 2020-01-16 10:19 | PHAR ---
SYMBICORT 80/4.5 MDI IDENTIFIED FROM HOME ALBUTEROL INHALER MDI IDENTIFIED FROM HOME
--- NOTE | 2020-01-16 11:27 | PC.NURSE ---
Dr. Garcia in to see pt. MD aware of BP's.
--- NOTE | 2020-01-16 11:43 | PM.IMHP ---
H&P: HPI History of Present Illness Chief complaint: post pih Narrative: Leanne Lopez is a 34 year old female admitted for elevated bps and worsening edema. Patient reported a mild headache on arrival yesterday and BPs at home where 140s/90s. Pain controlled and minimal bleeding. Patient denies visual changes. Patient urine output okay but dark. Review of Systems Review of Systems: All systems reviewed & are unremarkable except as noted in HPI and below PMFSH Past Medical History Medical History (Updated 01/11/20 @ 08:30 by Oliver Garcia MD) Abnormal uterine bleeding Asthma Eczema Edema during Gestational diabetes H/O delivery by vacuum extraction, currently HTN in , chronic Hypertension Pneumonia Surgical History Surgical History (Updated 01/11/20 @ 08:30 by Oliver Garcia MD) History of bladder surgery bladder sling Social History Social History (Updated 01/11/20 @ 08:26 by Oliver Garcia MD) Smoking status: Former smoker Tobacco type: cigarettes Alcohol intake: never Substance use: never Gender identity (if verbalized by the patient): Female Spiritual care concerns: No Meds Home Medications and Allergies Home Medications Medication Instructions Recorded Confirmed Type PNV cmb#95-ferrous fumarate-FA 1 tablet PO DAILY 07/07/19 01/15/20 History [] cetirizine [Zyrtec] 10 mg PO DAILY 07/07/19 01/15/20 History montelukast [Singulair] 10 mg PO DAILY 07/07/19 01/15/20 History budesonide-formoterol HFA 80 2 puff INHALATION Q12H #10.2 gm 10/23/19 01/15/20 Rx mcg-4.5 mcg/actuation aerosol inhaler albuterol sulfate 2.5 mg INHALATION Q4-6H PRN #180 ml 11/25/19 01/15/20 Rx labetalol 300 mg PO BID #0 tablet 12/21/19 01/15/20 Rx ibuprofen 600 mg PO Q6H PRN #60 tablet 01/13/20 01/15/20 Rx albuterol sulfate 2 inh INHALATION Q4-6H PRN 01/15/20 01/15/20 History hydrocodone-acetaminophen 1 tab PO Q4H PRN 01/15/20 01/15/20 History Allergies Allergy/AdvReac Type Severity Reaction Status Date / Time banana Allergy Unknown RESPIR. Verified 07/07/19 15:35 DISTRESS/ORAL SWELLING iodine Allergy Unknown Unknown Verified 07/07/19 15:35 latex Allergy Unknown Unknown Verified 07/07/19 15:35 peanut Allergy Unknown Unknown Verified 07/07/19 15:35 Vital Signs Vital Signs - 24 hr 01/15/20 11:46 01/15/20 12:11 01/15/20 12:13 Temperature Pulse Rate 80 80 Respiratory Rate Blood Pressure 169/102 H 177/109 H Pulse Oximetry 90 01/15/20 12:16 01/15/20 12:19 01/15/20 12:24 Temperature Pulse Rate 81 Respiratory Rate Blood Pressure 184/110 H Pulse Oximetry 99 98 100 01/15/20 12:30 01/15/20 12:31 01/15/20 12:46 Temperature 36.9 C Pulse Rate 80 85 Respiratory Rate Blood Pressure 183/108 H 177/108 H Pulse Oximetry 01/15/20 13:01 01/15/20 13:16 01/15/20 13:26 Temperature Pulse Rate 89 87 87 Respiratory Rate Blood Pressure 164/90 H 164/94 H Pulse Oximetry 01/15/20 13:30 01/15/20 13:32 01/15/20 13:46 Temperature Pulse Rate 90 90 87 Respiratory Rate Blood Pressure 144/90 H 139/85 136/99 H Pulse Oximetry 01/15/20 14:01 01/15/20 15:17 01/15/20 15:31 Temperature Pulse Rate 88 86 86 Respiratory Rate Blood Pressure 144/98 H 140/102 H 152/91 H Pulse Oximetry 01/15/20 16:18 01/15/20 16:31 01/15/20 16:38 Temperature 36.9 C Pulse Rate 84 80 84 Respiratory Rate Blood Pressure 158/109 H 164/110 H Pulse Oximetry 01/15/20 17:01 01/15/20 17:31 01/15/20 18:02 Temperature Pulse Rate 80 80 88 Respiratory Rate Blood Pressure 157/84 H 162/101 H 152/103 H Pulse Oximetry 01/15/20 18:17 01/15/20 19:01 01/15/20 21:51 Temperature Pulse Rate 84 87 74 Respiratory Rate Blood Pressure 148/92 H 148/93 H Pulse Oximetry 01/15/20 21:52 07/11/20 01:48 01/16/20 06:29 Temperature 37.0 C Pulse Rate 91 89 88 Respir
[2020-01-16 12:21] LABS: Hematocrit 34.4 % (37.0-47.0); Hemoglobin 10.6 g/dL (12.0-15.0); Mean Corpuscular HGB Conc 30.8 g/dl (32-36); Mean Corpuscular Hemoglobin 27.7 pg (26-34); Mean Corpuscular Volume 89.8 fl (80-100); Mean Platelet Volume 9.2 fl (7.4-10.4); Platelet Count Result 330 k/mm3 (150-375); Red Blood Count 3.83 M/mm3 (4.2-5.4); Red Cell Distribution Width 14.6 % (11.5-14.5); White Blood Count 7.3 K/mm3 (4.5-10.0)
[2020-01-16 12:31] LABS: Alanine Aminotransferase 28 U/L (4-35); Albumin Level 3.3 g/dL (3.5-5.1); Alkaline Phosphatase 83 U/L (38-126); Aspartate Amino Transferase 58 U/L (14-36); Bilirubin,Total 0.4 mg/dL (0.2-1.3); Blood Urea Nitrogen 10 mg/dL (7-17); Calcium 8.9 mg/dL (8.4-10.2); Carbon Dioxide 31 mmol/L (22-30); Chloride 102 mmol/L (98-107); Estimated CRCL calculation 146 ml/min; Estimated Glomerular Filt Rate > 60; Glucose 89 mg/dL (65-105); Lactate Dehydrogenase 779 U/L (313-618); Sodium 138 mmol/L (137-145); Uric Acid 4.8 mg/dL (2.5-7.5)
[2020-01-16] MEDS: ACETAMINOPHEN 500 MG TABLET 1000 MG PO (15:11)
--- NOTE | 2020-01-16 18:53 | PC.NURSE ---
Patient resting comfortably. Patient denies s/s of PP HIP. Patient denies pain. VSS.
--- NOTE | 2020-01-16 21:17 | PC.NURSE ---
Patient reports increased discomfort in legs bilaterally where edema is present. Negative homans sign. Medication administered as prescribed, ice applied to legs bilaterally.
[2020-01-17 02:03] VITALS: BP 153/95; PULSE 90; TEMP 37
[2020-01-17] MEDS: MONTELUKAST SODIUM 10 MG TABLET PO (02:13)
[2020-01-17 06:36] VITALS: PULSE 87
[2020-01-17] MEDS: LABETALOL HCL 100 MG TABLET 300 MG PO (06:36)
[2020-01-17 06:39] VITALS: BP 157/98; PULSE 87
[2020-01-17] MEDS: IBUPROFEN 600 MG TABLET PO (06:40)
[2020-01-17 09:02] VITALS: BP 136/88; PULSE 87
[2020-01-17] MEDS: LORATADINE 10 MG TABLET PO (09:15)
[2020-01-17] MEDS: NIFEdipine 30 MG TAB.ER.24 PO (09:15)
[2020-01-17] MEDS: MULTIVIT/MIN/PREN/FOL AC/IRON TABLET 1 TAB PO (09:15)
--- NOTE | 2020-01-17 09:15 | PM.OBPNVD ---
OB - PN: Subj Subjective Date/time seen: 01/17/20 09:15 S: patient reports feeling better this am swelling improved feels a little week OB - PN: Obj Data Labs CBC & Chem 7: 01/16/20 12:11 01/16/20 12:11 Labs: Laboratory Results - last 24 hr 01/16/20 01/16/20 12:11 12:11 WBC 7.3 RBC 3.83 L Hgb 10.6 L Hct 34.4 L MCV 89.8 MCH 27.7 MCHC 30.8 L RDW 14.6 H Plt Count 330 MPV 9.2 Sodium 138 Potassium 4.0 Chloride 102 Carbon Dioxide 31 H BUN 10 Creatinine 0.60 L Estim Creat Clear Calc 146 Estimated GFR > 60 Glucose 89 Uric Acid 4.8 Calcium 8.9 Total Bilirubin 0.4 AST 58 H ALT 28 Alkaline Phosphatase 83 Lactate Dehydrogenase 779 H Total Protein 7.0 Albumin 3.3 L OB - PN A/P Assessment and Plan (1) Edema during : Code(s): O12.00 - Gestational edema, unspecified trimester Status: Acute Assessment and Plan: s/p lasix iv, patient to continue with oral x 2 doses. (2) HTN in , chronic: Code(s): O10.919 - Unspecified pre-existing hypertension complicating , unspecified trimester Status: Acute Assessment and Plan: Continue with labetalol 300mg po Q 8 hours and procardia 30 xl Q day. Will d/c home with 48 hour follow up. Time Spent With Patient Time: Total time spent is greater than 50% in coordination of care (as documented) at patient's floor/unit and/or counseling patient: Exam Const: General: comfortable and no acute distress : Other: sofft incision clean Psych: Other: extremities, improved edema.
--- NOTE | 2020-01-17 10:11 | PC.NURSE ---
0905--Dr. Garcia at bedside to assess patient.VS assessed. Pt reports feeling much improved. DC orders given.
[2020-01-17] MEDS: FUROSEMIDE 40 MG TABLET PO (10:33)
== END 2020-01-17 11:50 | disposition home or self-care (01) ==
LOC: ANHOBOP 11:29 → ANHOBPP 11:36 → ANHOBOP 19:30 → ANHOBPP 19:30
PROVIDERS: Admitting Provider Obstetrics & Gynecology; PCP Family Medicine; Visit Provider Obstetrics & Gynecology
DX: O10.93 Unspecified pre-existing hypertension complicating the puerperium (principal); R60.0 Localized edema; Z87.891 Personal history of nicotine dependence
CPT/HCPCS: 36415; 80053; 83615; 84550; 85025; 85027; A9270; G0378; G0379; J1940

== ENCOUNTER 2020-02-27 11:39 | Outpatient (CLI) | payer OTHER, MEDICAID, SELFPAY ==
--- NOTE | 2020-02-27 | ECG_ITS ---
Measurements Intervals [place] Rate: 68 P: 29 NV: 172 QRS: 25 QRSD: 90 T: -4 QT: 381 QTc: 408 Interpretive Statements SINUS RHYTHM NONSPECIFIC T-WAVE ABNORMALITY- ANT/INF LEADS BASELINE ARTIFACT- II, III, AVF BORDERLINE ECG Electronically Signed On 02-27-2020 12:42:56 CDT by Vitor Cisse D.O.
== END 2020-02-27 11:40 | disposition home or self-care (01) ==
LOC: ANHCARD 11:41
PROVIDERS: PCP Family Medicine; Visit Provider Obstetrics & Gynecology
DX: I10 Essential (primary) hypertension (principal); R94.31 Abnormal electrocardiogram [ECG] [EKG]
CPT/HCPCS: 93005

== ENCOUNTER → 2020-03-03 14:09 | Outpatient (CLI) | payer OTHER, MEDICAID, SELFPAY ==
--- NOTE | ~2020-03-03 | US_ITS ---
EXAMINATION: US venous doppler [facility] DATE: 03/03/2020 14:39 INDICATION: Lower limb pain. TECHNIQUE: Grayscale ultrasound images without and with compression and Doppler ultrasound images of the bilateral lower extremity veins were obtained. COMPARISON: None. FINDINGS: The visualized portions of right common femoral vein, profunda (deep) femoral vein, femoral vein, pop liteal vein, peroneal veins, posterior tibial veins, and greater saphenous vein outflow are patent. The visualized portions of left common femoral vein, profunda femoral vein, femoral vein, popliteal v ein, peroneal veins, posterior tibial veins, and greater saphenous vein outflow are patent. IMPRESSION: 1. No deep venous thrombosis. Reviewed, dictated and finalized at location B.
== END ==
PROVIDERS: Visit Provider Obstetrics & Gynecology
DX: M79.604 Pain in right leg (principal); R60.0 Localized edema
CPT/HCPCS: 93970

== ENCOUNTER 2020-09-23 16:46 | Outpatient (CLI) | payer OTHER, MEDICAID, SELFPAY | END 2020-09-23 16:47 | disposition home or self-care (01) | LOC: ANHCOVIDVC 16:46 | DX: Z23 Encounter for immunization (principal) | CPT/HCPCS: 0001A; 91300 ==

== ENCOUNTER 2020-10-14 15:59 | Outpatient (CLI) | payer OTHER, SELFPAY | END 2020-10-14 16:00 | disposition home or self-care (01) | LOC: ANHCOVIDVC 15:59 | PROVIDERS: PCP Family Medicine | DX: Z23 Encounter for immunization (principal) | CPT/HCPCS: 0002A; 91300 ==

== ENCOUNTER → 2021-04-19 14:32 | Outpatient (CLI) | payer OTHER, SELFPAY ==
--- NOTE | ~2021-04-19 | US_ITS ---
EXAMINATION: US pelvic complete w TV EXAM DATE: 04/19/2021 15:01 INDICATION: Pelvic pain. TECHNIQUE: Pelvic transabdominal and transvaginal sonogram was performed. There are multiple graysca le and Doppler images available for interpretation. Comparison is made to prior examination from 08/07. FINDINGS: Uterus measures 8.8 x 4.5 x 5.9 cm, and is morphologically normal. Endometrial stripe lewis sures 7 mm, within normal limits. There are nabothian cysts. There is trace free pelvic fluid. Right adnexa: The ovary measures 2.8 x 2.4 x 2.7 cm and is morphologically normal. Ovarian vascular f low confirmed. Left adnexa: The ovary measures 3.0 x 2.5 x 3.2 cm and is morphologically normal. Ovarian vascular fl ow confirmed. IMPRESSION: Unremarkable pelvic ultrasound exam. Reviewed, dictated and finalized at location A.
== END ==
PROVIDERS: Visit Provider Obstetrics & Gynecology
DX: R10.2 Pelvic and perineal pain (principal)
CPT/HCPCS: 76830; 76856

== ENCOUNTER 2022-03-26 09:00 | Outpatient (CLI) | payer OTHER, SELFPAY ==
--- NOTE | ~2022-03-26 | US_ITS ---
US abdomen limited INDICATION: Right upper quadrant pain PROCEDURE: Realtime right upper abdominal ultrasound. COMPARISON: No prior studies for comparison. FINDINGS: The pancreas is normal without focal mass or pancreatic ductal dilation. Liver echotexture is normal without focal mass or intrahepatic biliary dilatation. There is normal directional flow i n the portal vein. The gallbladder is normal without stones, gallbladder wall thickening or pericholecystic fluid. Comm on bile duct measures 4 mm. No sonographic Ron's sign. IMPRESSION: 1: Normal limited abdominal ultrasound. Reviewed, dictated and finalized at location A.
== END 2022-03-26 09:01 | disposition home or self-care (01) ==
PROVIDERS: PCP Family Medicine; Visit Provider Family Medicine
DX: R10.11 Right upper quadrant pain (principal)
CPT/HCPCS: 76705

== ENCOUNTER 2022-06-03 20:34 | Emergency (ER) | payer OTHER, SELFPAY ==
[2022-06-03 20:51] VITALS: BP 146/93; PULSE 85; RESP 20; TEMP 36.9; O2SAT 99
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
[2022-06-03] MEDS: IBUPROFEN 400 MG TABLET 800 MG PO (21:22)
== END 2022-06-03 21:45 | disposition home or self-care (01) ==
PROVIDERS: Emergency Provider Emergency Medicine; PCP Family Medicine
DX: S16.1XXA Strain of muscle, fascia and tendon at neck level, initial encounter (principal); J45.909 Unspecified asthma, uncomplicated; I10 Essential (primary) hypertension; Z87.891 Personal history of nicotine dependence; V49.40XA Driver injured in collision with unspecified motor vehicles in traffic accident, initial encounter
CPT/HCPCS: 99283; A9270

== ENCOUNTER 2022-06-13 13:26 | Outpatient (CLI) | payer OTHER, SELFPAY ==
[2022-06-13 14:26] LABS: Beta HCG Quantitative < 2.39 mIU/ML
[2022-06-13 14:32] LABS: Hemoglobin A1C 5.5 % (<5.7)
[2022-06-13 14:40] LABS: Thyroid Stimulating Hormone 0.376 uIU/mL (0.465-4.680)
[2022-06-18 15:45] LABS: DHEA-Sulfate 216 mcg/dL (23-266); Insulin Level Total 70.1 uIU/mL (<=19.6)
[2022-06-19 06:59] LABS: Prolactin 12.8 ng/mL (***)
[2022-06-22 16:18] LABS: Testosterone Total 33 ng/dL (2-45)
== END 2022-06-13 13:27 | disposition home or self-care (01) ==
LOC: ANHLAB 13:28
PROVIDERS: PCP Family Medicine; Visit Provider Obstetrics & Gynecology Gynecology
DX: N64.4 Mastodynia (principal); N92.6 Irregular menstruation, unspecified
CPT/HCPCS: 36415; 82627; 83036; 83498; 83525; 84146; 84402; 84403; 84443; 84702

== ENCOUNTER 2023-12-12 19:01 | Emergency (ER) | payer SELFPAY ==
--- NOTE | ~2023-12-12 | CT_ITS ---
CT diagnostic chest wo con Ordering provider: Dionna Leon MD History: 38 years Female with . CP/sob/cough; xray c/f pneumonitis; poss PNA? . Comparison: April 15, 2017 Technique: CT chest without IV contrast. Radiation reduction technique utilized. FINDINGS: VISUALIZED THORACIC INLET: Normal. Right thyroid nodule. Ultrasound evaluation advised. MEDIASTINUM: Aorta/coronary arteries: Mild atheromatous disease. Heart/other: The heart is not enlarged. Lymph nodes: No mediastinal or hilar adenopathy. LUNGS: Minimal atelectatic changes in the lingula. No pulmonary nodules or masses. No infiltrates or effusions. No pneumothorax. VISUALIZED UPPER ABDOMEN: Sliding hiatus hernia. Otherwise, the visualized upper abdomen is normal. MUSCULOSKELETAL: Soft tissues: The superficial soft tissues are normal. Bones: Normal spine. IMPRESSION: 1. No evidence of pneumonia, effusion or pneumothorax. 2. Minimal atelectatic changes in the lingula. 3. Small sliding hiatus hernia. 4. Right thyroid nodule. Ultrasound evaluation advised. Reviewed, dictated and finalized at location A.
--- NOTE | ~2023-12-12 | XR_ITS ---
XR chest 2V Ordering provider: Dionna Leon MD History: 38 years Female with . SOB, CHEST PAINS ANTERIOR AND POSTERIOR BACK PAIN . Comparison: July 07, 2019 FINDINGS: MEDIASTINUM: The cardiac silhouette is not enlarged. LUNGS: No effusions or pneumothorax. Prominent markings in the lower lobes. Early pneumonitis cannot be excluded. OTHER: No free air under the diaphragm. IMPRESSION: Prominent markings in the lower lobes. Early pneumonitis cannot be excluded. Follow-up advised. Reviewed, dictated and finalized at location A. IMPRESSION: Prominent markings in the lower lobes. Early pneumonitis cannot be excluded. Fo llow-up advised.
[2023-12-12 19:04] VITALS: BP 181/106; PULSE 99; RESP 18; TEMP 37.2; O2SAT 100
--- NOTE | 2023-12-12 19:06 | ECG_ITS ---
[facility] [address] Test Date: 2023-12-12 Pat Name: Leanne Lopez Department: Room: Gender: F Alley Tender: : 1985 Requested By: Dionna Ward Order Number: [id number] Vinnei MD: Bryan Anderson M.D. Measurements Intervals [place] Rate: 90 P: 53 ND: 152 QRS: 11 QRSD: 88 T: 18 QT: 352 QTc: 432 Interpretive Statements SINUS RHYTHM WITHIN NORMAL LIMITS No previous ECG available for comparison Electronically Signed On 12-13-2023 09:02:37 CDT by Bryan Anderson M.D.
[2023-12-12 20:06] VITALS: O2SAT 100
--- NOTE | 2023-12-12 20:16 | ED.URI ---
HPI - URI/Sore Throat General Chief Complaint: Upper Respiratory Infection Stated Complaint: pain with cough and inspiration Time Seen by Provider: 12/12/23 20:02 Source: patient Mode of arrival: ambulatory Limitations: no limitations History of Present Illness HPI Narrative: She is complaining of cough for the past 2-3 days. She had seen her primary care physician earlier in the week when she was asymptomatic. Patient had fever of 102?. She notes that she has associated chest pain and this is worse with coughing and inspiration. No cardiac history. She does have a history of asthma hypertension. Occasional subjective lower extremity edema. No prior DVT/PE. Not on hormones. No hemoptysis. She lives with her children but they are not sick. Patient is also complaining of right facial pain. She states her right cheek BM to be a bit swollen. She notes that she has an absent tooth on the right lower side. Related Data Home Medications Medication Instructions Recorded Confirmed cetirizine 10 mg tablet (Zyrtec) 10 mg PO DAILY 07/07/19 12/12/23 Allergies Allergy/AdvReac Type Severity Reaction Status Date / Time banana Allergy Unknown RESPIR. Verified 12/12/23 22:14 DISTRESS/ORAL SWELLING iodine Allergy Unknown Unknown Verified 12/12/23 22:14 latex Allergy Unknown Unknown Verified 12/12/23 22:14 peanut Allergy Unknown Unknown Verified 12/12/23 22:14 [facility] Past Medical History Medical History Abnormal uterine bleeding Asthma Eczema Edema during Gestational diabetes H/O delivery by vacuum extraction, currently HTN in , chronic Hypertension Pneumonia Surgical History Surgical History History of bladder surgery bladder sling Family History Family History Father Hypertension Mother Patient's mother is in good health Other Asthma Social History Social History (Updated 12/12/23 @ 23:44 by Dionna Leon MD) Smoking status: Former smoker Tobacco type: cigarettes Alcohol intake: never Substance use: never Living arrangements: with family Additional living arrangements comments: Children Gender identity (if verbalized by the patient): Female Spiritual care concerns: No Exam Narrative: GENERAL: Well-appearing, well-nourished, and in no acute distress. HEAD: Normocephalic, atraumatic. EYES: Non injected, non icteric ENT: Nares clear, no rhinorrhea or epistaxis. Absent tooth on the right lower without tenderness to percussion or evidence of abscess. Slightly more fullness to right cheek but without firmness/induration. NECK: Supple. CHEST: Speaking in full sentences. No respiratory distress. Coarse expiratory bilateral breath sounds. HEART: Regular rate and rhythm. . ABDOMEN: Soft, nondistended. EXTREMITIES: Normal range of motion. No lower extremity edema, bilateral or unilateral. SKIN: Warm, dry, no rash. NEURO: No focal deficits. Alert and oriented x3. PSYCH: Normal mood and affect. Course Vital Signs Vital signs: Vital Signs Temperature 98.9 F 12/12/23 19:04 Pulse Rate 99 12/12/23 19:04 Respiratory Rate 18 12/12/23 19:04 Blood Pressure 181/106 H 12/12/23 19:04 Pulse Oximetry 100 12/12/23 19:04 Oxygen Delivery Room Air 12/12/23 19:04 Temperature 98.9 F 12/12/23 19:04 Pulse Rate 81 12/13/23 00:18 Respiratory Rate 15 12/13/23 00:18 Blood Pressure 146/78 H 12/13/23 00:18 Pulse Oximetry 100 12/13/23 00:18 Oxygen Delivery Room Air 12/12/23 20:06 MDM - URI/Sore Throat MDM Narrative Medical decision making narrative: 38 yo presents with cough, chest pain, and shortness of breath. In the ED she is afebrile with VS notable for hypertension. Coarse breath sounds bilaterally. I highly suspect asthma exacerbation although
[2023-12-12 20:57] LABS: Basophils Percent Auto 0.4 % (0.2-1.2); Eosinophils Absolute Auto 0.2 K/mm3 (0-0.3); Eosinophils Percent Auto 2.1 % (0-4.4); Hematocrit 42.8 % (37.0-47.0); Hemoglobin 13.6 g/dL (12.0-15.0); Immature Granulocyte Absolute 0.03 K/mm3 (0.00-0.031); Immature Granulocyte Percent A 0.3 % (0-0.5); Lymphocytes Absolute Auto 2.32 K/mm3 (0.9-3.2); Lymphocytes Percent Auto 21.5 % (18.3-44.2); Mean Corpuscular HGB Conc 31.8 g/dl (32-36); Mean Corpuscular Volume 85.1 fl (80-100); Mean Platelet Volume 9.2 fl (7.4-10.4); Monocytes Absolute Auto 1.2 K/mm3 (0.1-0.6); Monocytes Percent Auto 10.8 % (2.6-8.5); Neutrophils Percent Auto 64.9 % (45.5-73.1); Platelet Count Result 300 k/mm3 (150-375); Red Blood Count 5.03 M/mm3 (4.2-5.4); White Blood Count 10.8 K/mm3 (4.5-10.0)
[2023-12-12 21:18] LABS: Alanine Aminotransferase 9 U/L (6-35); Albumin Level 4.3 g/dL (3.5-5.1); Alkaline Phosphatase 55 U/L (38-126); Anion Gap 6 mmol/L (4-12); Aspartate Amino Transferase 25 U/L (14-36); Bilirubin,Total 0.7 mg/dL (0.2-1.3); Blood Urea Nitrogen 10 mg/dL (7-17); Carbon Dioxide 26 mmol/L (22-30); Chloride 105 mmol/L (98-107); Estimated CRCL calculation 93 ml/min; Estimated Glomerular Filt Rate > 60; Glucose 96 mg/dL (65-110); Potassium 3.9 mmol/L (3.4-5.0); Sodium 137 mmol/L (137-145)
[2023-12-12 21:30] LABS: Troponin I < 0.012 ng/mL (0.000-0.034)
[2023-12-12 21:35] LABS: D Dimer 0.39 ug/mL (<0.48)
[2023-12-12 21:42] LABS: Prothrombin Time 14.1 Seconds (11.1-14.7)
[2023-12-12 22:08] LABS: Influenza A QL RT-PCR Negative (Negative); Influenza B QL RT-PCR Negative (Negative); RSV RNA, RT-PCR Negative (Negative); SARS-CoV-2 RNA PCR Negative (Negative)
[2023-12-12 22:09] VITALS: BP 163/113; PULSE 93; RESP 24; O2SAT 100
[2023-12-12 23:58] VITALS: PULSE 90; RESP 20
[2023-12-12] MEDS: IPRATROPIUM 0.5 MG/ALBUTEROL SULFATE 2.5 MG AMPUL.NEB 3 ML INHALATION (23:58)
[2023-12-13 00:06] VITALS: PULSE 86; RESP 18
[2023-12-13] MEDS: PANTOPRAZOLE 40 MG TABLET PO (00:14)
[2023-12-13] MEDS: predniSONE 20 MG TABLET 40 MG PO (00:14)
[2023-12-13 00:18] VITALS: BP 146/78; PULSE 81; RESP 15; O2SAT 100
== END 2023-12-13 00:18 | disposition home or self-care (01) ==
PROVIDERS: Emergency Provider Student in an Organized Health Care Education/Training Program; PCP Family Medicine
DX: J45.901 Unspecified asthma with (acute) exacerbation (principal); K44.9 Diaphragmatic hernia without obstruction or gangrene; E04.1 Nontoxic single thyroid nodule; D72.829 Elevated white blood cell count, unspecified; R51.9 Headache, unspecified; Z20.822 Contact with and (suspected) exposure to COVID-19; I10 Essential (primary) hypertension; Z87.01 Personal history of pneumonia (recurrent); Z87.891 Personal history of nicotine dependence; Z79.899 Other long term (current) drug therapy
CPT/HCPCS: 36415; 71046; 71250; 80053; 84484; 85025; 85380; 85610; 85730; 87637; 93005; 94640; 99284; A9270; J7512

== ENCOUNTER 2024-01-23 16:33 | Outpatient (CLI) | payer BC, SELFPAY ==
[2024-01-23 17:37] LABS: Beta HCG Quantitative < 2.39 mIU/ML
== END 2024-01-23 16:34 | disposition home or self-care (01) ==
LOC: ANHLAB 16:37
PROVIDERS: PCP Family Medicine; Visit Provider Physician Assistant
DX: Z32.00 Encounter for pregnancy test, result unknown (principal)
CPT/HCPCS: 36415; 84702

== ENCOUNTER 2024-11-02 08:45 | Emergency (ER) | payer BC, SELFPAY ==
--- NOTE | ~2024-11-02 | CT_ITS ---
CT facial bones wo con Ordering provider: Camilla Winter PA-C History: . left sided facial swelling, dental pain . Comparison: None. Technique: Thin slice axial CT of the facial bones was performed without contrast. Coronal and sagit ale reformatted images were also obtained. . Automated exposure control and iterative reconstruction technique were employed. The dose-length product was 590.11 mGy-cm. FINDINGS: PARANASAL SINUSES: Left maxillary, bilateral ethmoid and right sphenoid sinus disease. Otherwise, Wel l aerated. Obliteration of the left ostiomeatal complex. BONES: No facial fracture including no nasal bone fracture. ORBITS AND SUPERFICIAL SOFT TISSUES: The optic globes and orbits are normal. Stranding seen in the le ft cheek. Otherwise, The superficial soft tissues are normal. VISUALIZED MASTOIDS: Well aerated. LIMITED VISUALIZED BRAIN PARENCHYMA: Normal. IMPRESSION: No facial fracture. Fat stranding in the area of the left cheek with swelling. Reviewed, dictated and finalized at location A.
[2024-11-02 08:52] VITALS: BP 202/147; PULSE 96; RESP 19; TEMP 36.4; O2SAT 98
--- OUTSIDE RECORDS SUMMARY | 2024-11-02 09:04 | XMS_ITS | Referral Summary ---
Author Organization [facility] [address] Address [address] [place] [address] Care Team Providers Care English Composition Instructor Name Role Phone Bucky Fernández MD Primary Care Provider Allergies Active Allergy Reactions Criticality Noted Date Comments Iodine Rash,Itching,Swelling Medium 10/29/2009 Other reaction(s): Swelling Swelling Iodine And Iodide Containing Products Rash Medium Latex Rash,Itching,Swelling Medium 07/29/2016 Other reaction(s): Swelling Swelling Melon Swelling High 01/16/2023 Swollen throat Medications albuterol HFA (PROVENTIL HFA,VENTOLIN HFA,PROAIR HFA) 90 mcg/actuation inhaler INHALE 1 PUFF BY MOUTH EVERY 4 HOURS NEEDED FOR SHORTNESS OF BREATH OR WHEEZING 3 Active hydroCHLOROthia zide (HYDRODIURIL) 25 mg tablet Take 1 tablet (25 mg total) by mouth daily 3 Active labetaloL (NORMODYNE,TUCKER DATE) 100 mg tablet Take 2 tablets (200 mg total) by mouth daily 3 Active cetirizine (ZyrTEC) 10 mg tablet Take 1 tablet (10 mg total) by mouth daily Active multivitamin capsule Take 1 capsule by mouth daily Active Active Problems Problem Noted Date Diagnosed Date Mass of left breast 10/11/2022 Disorder of shoulder 04/11/2018 Chronic pain of both shoulders 04/11/2018 Back pain 04/11/2018 Macromastia 03/05/2018 Overview (09/24/2022): Added automatically from request for surgery [id number] Usual hyperplasia of lactiferous duct, right Sclerosing adenosis, 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 02/19/2018 Abnormal ultrasound of breast 02/19/2018 Abnormal mammogram 02/19/2018 Hypertension 11/25/2015 Overview (10/11/2016): Labile hypertension Syncope and collapse 11/25/2015 Overview (10/11/2016): Syncope and collapse Orthostasis 11/25/2015 Overview (10/11/2016): Orthostasis Goiter 10/12/2014 Overview (10/11/2016): Goiter Adiposity 10/12/2014 Overview (10/11/2016): Obesity Malignant hypertension 08/17/2014 Overview (10/11/2016): Malignant hypertension Social History Tobacco Use Types Packs/Day Years Used Date Smoking Tobacco: Every Day Cigarettes Smokeless Tobacco: Never Tobacco Cessation:Ready to Q uit: Yes; Counseling Given: Yes Alcohol Use Standard Drinks/Week Comments Yes 0 (1 standard drink = 0.6 oz pur e alcohol) Comments Unknown Sex and Gender Information Value Date Recorded Sex Assigned at Not on file Legal Sex Female 1:07 AM TRAVEL OT Gender Identity Not on file Sexual Orientation Not on file Last Filed Vital Signs Vital Sign Reading Time Taken Comments Blood Pressure 130/84 06/17/2017 4:07 PM TRAVEL OT Pulse 76 06/17/2017 4:07 PM TRAVEL OT Temperature 36.7 C (98 F) 07/29/2016 12:34 AM TRAVEL OT Respiratory Rate - - Oxygen Saturation 99% 06/17/2017 4:07 PM TRAVEL OT Inhaled Oxygen Concentration - - Weight 90.7 kg (200 lb) 10/11/2022 9:47 AM CDT Height 165.1 cm (5' 5 ) 10/11/2022 9:47 AM CDT Body Mass Index 33.28 10/11/2022 9:47 AM CDT Plan of Treatment Not on file Insurance [facility] Care Teams English Composition Instructor Relationship Specialty Start Date End Date Bucky Fernández MD [address] [place] [address] PCP - General 12/12/15
--- OUTSIDE RECORDS SUMMARY | 2024-11-02 09:04 | XMS_ITS | Clinical Summary ---
Author Organization [facility] [employer] Address [address] [place] [address] Care Team Providers Care Butcher Fish Name Role Phone Bucky Fernández MD Primary Care Provider [phone] Source Comments [facility],non-owned Affiliates and Associated Physician Practices is amultiple site organization consisting of ambulatory clinics and hospital sitesin [place], [place], [place] and [place]. This disclosure is being madepursuant to the Care Everywhere program and may not contain all information available regarding this patient. Last updated 18.[facility] [employer] Allergies Active Allergy Reactions Criticality Noted Date Comments Iodine 10/29/2009 Medications * Be aware that medications may not be up to date on this document. Alwaysverify current medications with the patient. LISINOPRIL PO Take by mouth. Active NIFEdipine osmotic 24hr (PROCARDIA XL) 60 MG (OSM) tablet Take 60 mg by mouth daily. Active Active Problems Problem Noted Date Diagnosed Date Third 10/02/2019 Overview (11/12/2019): B+ Neg, Immune, Rpr-Neg, HBSag-Neg, HIV-Neg Social History Tobacco Use Types Packs/Day Years Used Date Smoking Tobacco: Former Alcohol Use Standard Drinks/Week Comments No 0 (1 standard drink = 0.6 oz pur e alcohol) Comments No Sex and Gender Information Value Date Recorded Sex Assigned at Not on file Legal Sex Female 8:47 AM E LEARNING COORDINATOR Gender Identity Not on file Sexual Orientation Not on file Last Filed Vital Signs Vital Sign Reading Time Taken Comments Blood Pressure 147/83 01/04/2020 11:05 AM CDT Pulse 86 01/04/2020 11:05 AM CDT Temperature 37.1 C (98.8 F) 12/01/2019 10:37 AM CDT Respiratory Rate 18 01/04/2020 11:05 AM CDT Oxygen Saturation 98% 12/18/2009 7:15 AM CDT Inhaled Oxygen Concentration - - Weight 79.4 kg (175 lb) 12/18/2009 5:23 AM CDT Height 165.1 cm (5' 5 ) 12/18/2009 5:23 AM CDT Body Mass Index 29.12 12/18/2009 5:23 AM CDT Plan of Treatment Health Maintenance Due Date Last Done Comments HIV SCREENING 2000 HEPATITIS C SCREENING 07/18/2003 DTAP/TDAP/TD VACCINES (1 - Tdap) 2004 HEPATITIS B VACCINE (1 of 3 - 19+ 3-dose series) 2004 COVID-19 VACCINE ( - 2023-2 5 season) 2024 DEPRESSION SCREENING 07/08/2024 INFLUENZA VACCINE (Season Ended) 2025 ZOSTER VACCINE (1 of 2) 2035 HIB VACCINE Aged Out No longer eligi ble based on patient's age to complete this topic HPV VACCINE Aged Out No longer eligi ble based on patient's age to complete this topic MENINGOCOCCAL (Group B) VACC INE SHARED DECISION-MAKING Aged Out No longer eligibl e based on patient's age to complete this topic MENINGOCOCCAL GROUPS A/C/Y/W VACCINE Aged Out No longer eligible b ased on patient's age to complete this topic PNEUMOCOCCAL VACCINE Aged Out No long er eligible based on patient's age to complete this topic Insurance MEDICAID - [place] [address] [facility] MEDICAID - OUT OF STATE Care Teams Butcher Fish Relationship Specialty Start Date End Date Bucky Fernández MD [address] [place] [address] PCP - General Family Medicine 10/05/19
--- OUTSIDE RECORDS SUMMARY | 2024-11-02 09:04 | XMS_ITS | Clinical Summary ---
Author Organization [facility] Address [address] [place] [address] [place] [address] Care Team Providers Care Change Control Specialist Name Role Phone Bucky Fernández MD Primary Care Provider [phone] Allergies Active Allergy Reactions Criticality Noted Date Comments Iodine Swelling 10/29/2009 Latex Swelling 04/11/2018 Medications enalapril (VASOTEC) 10 mg tablet 01/07/2018 Active spironolactone (ALDACTONE) 25 mg tablet TK 1 T PO QD 1 12/05/2017 Active Active Problems Problem Noted Date Diagnosed Date Chronic pain of both shoulders 04/11/2018 Mid back pain 04/11/2018 Upper back pain 04/11/2018 Shoulder lesion, left 04/11/2018 Shoulder lesion, right 04/11/2018 ERRONEOUS ENCOUNTER--DISREGARD 03/31/2018 Usual hyperplasia of lactiferous duct, right Sclerosing adenosis, right 03/05/2018 Macromastia 03/05/2018 Abnormal mammogram 02/19/2018 Bilateral mastodynia 02/19/2018 Abnormal ultrasound of breast 02/19/2018 Social History Tobacco Use Types Packs/Day Years Used Date Smoking Tobacco: Former Cigarettes 0 12/06/2009 - 12/07/2015 Smokeless Tobacco: Never Alcohol Use Standard Drinks/Week Comments No 0 (1 standard drink = 0.6 oz pur e alcohol) Comments No Sex and Gender Information Value Date Recorded Sex Assigned at Not on file Legal Sex Female 10:43 PM CDT Gender Identity Not on file Sexual Orientation Not on file Last Filed Vital Signs Vital Sign Reading Time Taken Comments Blood Pressure 125/88 06/05/2018 4:10 PM DRESSING ROOM PORTER Pulse 81 06/05/2018 4:10 PM DRESSING ROOM PORTER Temperature 36.8 C (98.2 F) 06/05/2018 4:10 PM DRESSING ROOM PORTER Respiratory Rate - - Oxygen Saturation 98% 06/05/2018 4:10 PM DRESSING ROOM PORTER Inhaled Oxygen Concentration - - Weight 92.7 kg (204 lb 4.8 oz) 06/05/2018 4:10 P M DRESSING ROOM PORTER Height 165.1 cm (5' 5 ) 06/05/2018 4:10 PM DRESSING ROOM PORTER Body Mass Index 34 06/05/2018 4:10 PM DRESSING ROOM PORTER Plan of Treatment Health Maintenance Due Date Last Done Comments DTAP/TDAP/TD VACCINES (1 - Tdap) 2004 HEPATITIS B VACCINES (1 of 3 - 19+ 3-dose series) 2004 HPV/Cotest (21-29) 2006 CERVICAL CANCER SCREENING 2015 HPV/Cotest (30-65) 2015 PAP SMEAR 2015 INFLUENZA VACCINE (#1) 2024 HPV VACCINES Aged Out No longer eligi ble based on patient's age to complete this topic Insurance PPO Care Teams Change Control Specialist Relationship Specialty Start Date End Date Bucky Fernández MD [address] [facility] [address] [place] [address] PCP - General Family Practice 02/19/18
--- OUTSIDE RECORDS SUMMARY | 2024-11-02 09:04 | XMS_ITS | Clinical Summary ---
Author Organization [facility] [address] Address [address] [place] [address] Care Team Providers Care Display Designer Name Role Phone Bucky Fernández MD Primary [...] (09/24/2022): Added automatically from request for surgery [id number] Usual hyperplasia of lactiferous duct, right Sclerosing adenosis, 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 02/19/2018 Abnormal ultrasound of breast 02/19/2018 Abnormal mammogram 02/19/2018 Hypertension 11/25/2015 Overview (10/11/2016): Labile hypertension Syncope and collapse 11/25/2015 Overview (10/11/2016): Syncope and collapse Orthostasis 11/25/2015 Overview (10/11/2016): Orthostasis Goiter 10/12/2014 Overview (10/11/2016): Goiter Adiposity 10/12/2014 Overview (10/11/2016): Obesity Malignant hypertension 08/17/2014 Overview (10/11/2016): Malignant hypertension Surgical History Surgery Date Site/Laterality Comments BLADDER SURGERY 07/08/2015 - 07/07/2016 SECTION Medical History Medical History Date Comments Asthma Asthma; Comments : JBP 08/17/2014 - Hypertension Hypothyroidism Over weight Macromastia Motion sickness Eczema Family History Medical History Relation Name Comments Hypertension Father Hypertension; Other Mother Alive and well; Relation Name Status Comments Father Mother Alive Social History Tobacco Use Types Packs/Day Years Used Date Smoking Tobacco: Every Day Cigarettes Smokeless Tobacco: Never Tobacco Cessation:Ready to Q uit: Yes; Counseling Given: Yes Alcohol Use Standard Drinks/Week Comments Yes 0 (1 standard drink = 0.6 oz pur e alcohol) Comments Unknown Sex and Gender Information Value Date Recorded Sex Assigned at Not on file Legal Sex Female 1:07 AM FIELD ARTILLERY CREWMEMBER Gender Identity Not on file Sexual Orientation Not on file Obstetrics History Last Filed Vital Signs Vital Sign Reading Time Taken Comments Blood Pressure 130/84 06/17/2017 4:07 PM FIELD ARTILLERY CREWMEMBER Pulse 76 06/17/2017 4:07 PM FIELD ARTILLERY CREWMEMBER Temperature 36.7 C (98 F) 07/29/2016 12:34 AM FIELD ARTILLERY CREWMEMBER Respiratory Rate - - Oxygen Saturation 99% 06/17/2017 4:07 PM FIELD ARTILLERY CREWMEMBER Inhaled Oxygen Concentration - - Weight 90.7 kg (200 lb) 10/11/2022 9:47 AM CDT Height 165.1 cm (5' 5 ) 10/11/2022 9:47 AM CDT Body Mass Index 33.28 10/11/2022 9:47 AM CDT Plan of Treatment Health Maintenance Due Date Last Done Comments Cervical Cancer Screening 1985 Depression Screening 1985 Hepatitis C Screening 1985 DTaP/Tdap/Td Vaccine (1 - Tdap) 1996 Varicella Vaccines (1 of 2 - 13+ 2-dose series) 1998 Hepatitis B Screening 2003 Regular Well Visit/Exam 18-64 2003 Pneumococcal vaccine <65 (1 of 2 - PCV) 2004 Covid-19 Vaccine (3 - 2023-2 5 season) 2024 10/14/2020, 09/23/2020 Influenza Vaccine (#1) 2024 HPV Vaccines Aged Out No longer eligi ble based on patient's age to complete this topic Insurance [facility] Care Teams Display Designer Relationship Specialty Start Date End Date Bucky Fernández MD [address] [facility] [address] [place] [address] PCP - General 12/12/15
--- OUTSIDE RECORDS SUMMARY | 2024-11-02 09:04 | XMS_ITS | Clinical Summary ---
Author Organization [facility] Address [address] [place] [address] Care Team Providers Care Lapidarist Name Role Phone Bucky Fernández MD Primary Care Provider [phone] Allergies Active Allergy Reactions Criticality Noted Date Comments Iodine Itching,Swelling 06/02/2019 Latex Itching,Swelling 06/02/2019 Medications PROAIR HFA 108 (90 Base) MCG/ACT inhaler INL 2 PFS PO Q 4 TO 6 H PRN 5 7 Active labetalol 200 MG tablet 200 mg 2 (two) times daily. 9 Active hydroCHLOROthia zide 25 MG tablet 2 Active SYMBICORT 160-4.5 MCG/ACT inhaler INHALE 2 PUFFS BY MOUTH EVERY 12 HOURS 1 Active albuterol (2.5 MG/3ML) 0.083% nebulizer solution USE 1 VIAL VIA NEBULIZER EVERY 4 TO 6 HOURS NEEDED FOR SHORTNESS OF BREATH OR WHEEZING 1 Active predniSONE (DELTASONE) 10 mg tablet Four tabs x 2 days, three tabs x 2 days, two tabs x 2 days, one tab x 2 days, 1/2 tab x 2 days 21 tablet 4 Active Family History Medical History Relation Comments Hypertension Father None Mother Relation Status Comments Father Alive Mother Alive Social History Tobacco Use Types Packs/Day Years Used Date Smoking Tobacco: Never Smokeless Tobacco: Never Alcohol Use Standard Drinks/Week Comments Yes 0 (1 standard drink = 0.6 oz pur e alcohol) socially AUDIT-C Answer Date Recorded Frequency of Alcohol Consumption Never 06/02/2019 Average Number of Drinks Not on file 019 Frequency of Binge Drinking Not on file 05/09 Comments No Sex and Gender Information Value Date Recorded Sex Assigned at Not on file Legal Sex Female 7:11 PM CDT Gender Identity Not on file Sexual Orientation Not on file Last Filed Vital Signs Vital Sign Reading Time Taken Comments Blood Pressure 147/96 11/04/2023 2:40 PM CDT Pulse 76 11/04/2023 2:40 PM CDT Temperature 36.7 C (98 F) 11/04/2023 2:40 PM CDT Respiratory Rate 20 11/04/2023 2:40 PM CDT Oxygen Saturation 100% 11/04/2023 2:40 PM CDT Inhaled Oxygen Concentration - - Weight 90.7 kg (200 lb) 11/04/2023 2:40 PM CDT Height 165.1 cm (5' 5 ) 11/04/2023 2:40 PM CDT Body Mass Index 33.28 11/04/2023 2:40 PM CDT Plan of Treatment Health Maintenance Due Date Last Done Comments Cervical Cancer Screening Pa p Smear (Age 30 to 64) Every 3 Years 1985 Annual Physical 1988 Hepatitis C 2003 DTaP, Tdap and Td Vaccines ( 1 - Tdap) 2004 Hepatitis B Vaccines (1 of 3 - 19+ 3-dose series) 2004 Pneumococcal Vaccine: Pediatrics (0 to 5 Years) and At-Risk Patients (6 to 49 Years) (1 of 2 - PCV) 2004 Cervical Cancer Screening Pa p with HPV Testing (Age 30 to 64) Every 5 Years 2015 Cervical Cancer Screening [facility] HPV 2015 COVID-19 Vaccine (2023-2 5 season) 2024 10/14/2020, 09/23/2020 HPV Vaccines Aged Out No longer eligi ble based on patient's age to complete this topic Meningococcal B Vaccine Aged Out No l onger eligible based on patient's age to complete this topic Meningococcal Vaccine Aged Out No kamron mitchell eligible based on patient's age to complete this topic RSV Immunizations Under 20 Months Aged Out No longer eligible b ased on patient's age to complete this topic Additional Health Concerns Infection Onset Date Last Indicated 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
--- OUTSIDE RECORDS SUMMARY | 2024-11-02 09:04 | XMS_ITS | Clinical Summary ---
Author Organization [facility] Address [address] [place] [address] Care Team Providers Care News Clipping Cutter Name Role Phone Unavailable Primary Care Provider Unavailabl e Social History Tobacco Use Types Packs/Day Years Used Date Smoking Tobacco: Never Assessed Comments Unknown Sex and Gender Information Value Date Recorded Sex Assigned at Not on file Legal Sex Female 12:44 PM GAME PROGRAMER Gender Identity Not on file Sexual Orientation Not on file Plan of Treatment Health Maintenance Due Date Last Done Comments Hepatitis C Virus (HCV) Screening 1985 TdaP Immunization 1985 Hepatitis B Immunization (1 of 3 - 19+ 3-dose series) 2004 Pap Smear 2006 Cervical Cancer Screening (CCS) 2015 HPV/Cotest 2015 Influenza Immunization (#1) 2024 SARS-COV-2 Immunization ( season) 2024 09/23/2020 Respiratory Syncytial Virus (RSV) Immunization (Adult) (1 - 1-dose 75+ series) 2060 Meningococcal Immunization (ACWY) Aged Out No longer eligible based on patient's age to complete this topic Pneumococcal Immunization Combined Aged Out No longer eligible based on patient's age to complete this topic Rotavirus Immunization Aged Out No lo nger eligible based on patient's age to complete this topic
--- NOTE | 2024-11-02 09:31 | ECG_ITS ---
Test Date: 2024-11-02 10:11:56 Measurements Intervals [place] Rate: 79 P: 50 WI: 144 QRS: 16 QRSD: 89 T: -1 QT: 381 QTc: 438 Interpretive Statements SINUS RHYTHM NONSPECIFIC T-WAVE ABNORMALITY- INFERIOR LEADS BORDERLINE ECG Compared to ECG 12/12/2023 19:40:46 T-wave abnormality now present Electronically Signed On 11-02-2024 11:02:36 CDT by Vitor Cisse D.O.
--- NOTE | 2024-11-02 09:42 | ED.DENTAL ---
HPI - Dental/Oral General Chief complaint: Dental/Oral Stated complaint: left sided facial pain and swelling Time Seen by Provider: 11/02/24 09:09 Source: patient Mode of arrival: ambulatory Limitations: no limitations History of Present Illness HPI Narrative: This is a 39 year old female that presents to the ER for left sided facial swelling. Reports yesterday she noted some pain in her left upper molars. Reports today she woke up with left sided facial swelling. Denies fevers, drainage. Patient incidentally noted to be hypertensive. She has not taken her blood pressure medication today. MD Complaint: tooth pain Location: Tooth # (15, 16) Related Data Home Medications ?Medication ?Instructions ?Recorded ?Confirmed ?Last Taken ?Type cetirizine 10 mg tablet (Zyrtec) 10 mg PO DAILY 07/07/19 11/02/24 01/15/20 08:00 History Allergies Allergy/AdvReac Type Severity Reaction Status Date / Time banana Allergy Unknown RESPIR. Verified 11/02/24 08:57 DISTRESS/ORAL SWELLING iodine Allergy Unknown Unknown Verified 11/02/24 08:57 latex Allergy Unknown Unknown Verified 11/02/24 08:57 peanut Allergy Unknown Unknown Verified 11/02/24 08:57 Review of Systems Review of Systems: CONSTITUTIONAL: Denies fever ENT: Reports dentalgia All systems reviewed & are unremarkable except as noted in HPI and below PMFSH Past Medical History Medical History Gestational diabetes HTN in , chronic Edema during Eczema H/O delivery by vacuum extraction, currently Abnormal uterine bleeding Asthma Pneumonia Hypertension Surgical History Surgical History History of bladder surgery bladder sling Family History Family History Father Hypertension Mother Patient's mother is in good health Other Asthma Social History Social History Smoking status: Former smoker Tobacco type: cigarettes Alcohol intake: never Substance use: never Living arrangements: with family Additional living arrangements comments: Children Gender identity (if verbalized by the patient): Female Spiritual care concerns: No Exam Narrative: GENERAL: Well-appearing, well-nourished, and in no acute distress. HEAD: Normocephalic, atraumatic. EYES: EOMI. ENT: Nares clear, no rhinorrhea or epistaxis. Mucous membranes moist. Oropharynx without tonsillar hypertrophy exudate or other lesions. Left sided facial swelling surrounding teeth 15 and 16 which are decaying. No focal abscess noted NECK: Supple. No adenopathy or masses. CHEST: Clear to auscultation. No respiratory distress. No wheezes rales or rhonchi HEART: Regular rate and rhythm. No murmur heard. Normal peripheral pulses. EXTREMITIES: Normal range of motion. No edema. SKIN: Warm, dry, no rash. NEURO: No focal deficits. Alert and oriented x3. PSYCH: Normal mood and affect Course Course Emergency Course: Patient updated on her workup and agrees with plan of care Vital Signs Vital signs: Vital Signs Temperature 97.6 F 11/02/24 08:52 Pulse Rate 96 11/02/24 08:52 Respiratory Rate 19 11/02/24 08:52 Blood Pressure 202/147 H 11/02/24 08:52 Pulse Oximetry 98 11/02/24 08:52 Oxygen Delivery Room Air 11/02/24 08:52 Temperature 97.6 F 11/02/24 08:52 Pulse Rate 77 11/02/24 12:05 Respiratory Rate 18 11/02/24 12:05 Blood Pressure 165/112 H 11/02/24 12:05 Pulse Oximetry 98 11/02/24 12:05 Oxygen Delivery Room Air 11/02/24 08:52 MDM - Dental/Oral MDM Narrative Medical decision making narrative: Patient presents to the emergency department for a toothache. Ongoing since yesterday. Woke up today with swelling to the left side of the face. Has swelling around decaying left upper molars. No obvious abscess on exam. She is afebrile and nontoxic appearing. Cbc without leukocytosis. Inflammatory markers are not concerning we elevated. CT facial bones does not show an abscess. Patient given a dose of Unasyn, will be continued on oral antibiotics. Instructed on the importance of having close follow-up with her dentist. Patient incidentally hypertensive. She does report she did not take her blood pressure medication this morning. I gave her her home medication. She is asymptomatic with this. Instructed on the importance of taking her medications as prescribed and continuing to monitor this sat home, as well as follow-up with her primary provider Differential Diagnosis Differential diagnosis: Likely gingival abscess, dental caries, toothache, dental abscess and fracture of tooth Lab Data Attestation: I reviewed the patient's lab results. 11/02/24 09:49 11/02/24 09:49 Labs: Lab Results 11/02/24 11/02/24 Range/Units 09:49 11:03 WBC 9.1 (4.5-10.0) K/mm3 RBC 4.93 (4.2-5.4) M/mm3 Hgb 12.9 (12.0-15.0) g/dL Hct 41.8 (37.0-47.0) % MCV 84.8 (80-100) fl MCH 26.2 (26-34) pg MCHC 30.9 L (32-36) g/dl RDW 13.6 (11.5-14.5) % Plt Count 329 (150-375) k/mm3 MPV 9.1 (7.4-10.4) fl Immature Gran % (Auto) 0.2 (0-0.5) % Neut % (Auto) 49.3 (45.5-73.1) % Lymph % (Auto) 34.7 (18.3-44.2) % Sweet Grass % (Auto) 12.2 H (2.6-8.5) % Eos % (Auto) 3.0 (0-4.4) % Baso % (Auto) 0.6 (0.2-1.2) % Lymph # (Auto) 3.15 (0.9-3.2) K/mm3 Sweet [place] # (Auto) 1.1 H (0.1-0.6) K/mm3 Eos # (Auto) 0.3 (0-0.3) K/mm3 Baso # (Auto) 0.1 (0.0-0.1) K/mm3 Abs Immat Gran (auto) 0.02 (0.00-0.031) K/mm3 Absolute Neuts (auto) 4.5 (1.3-6.7) K/mm3 Absolute Nucleated RBC 0.000 (0.0-0.012) K/mm3 Nucleated RBC % 0.0 (0.0-0.2) % ESR 14 (0-20) mm/hr Sodium 139 (137-145) mmol/L Potassium 3.8 (3.4-5.0) mmol/L Chloride 104 (98-107) mmol/L Carbon Dioxide 30 (22-30) mmol/L Anion Gap 5 (4-12) mmol/L BUN 11 (7-17) mg/dL Creatinine 0.76 (0.7-1.0) mg/dL Estim Creat Clear Calc 101 ml/min Estimated GFR > 60 (59 - ) Glucose 105 (65-110) mg/dL Calcium 8.6 (8.4-10.2) mg/dL Total Bilirubin 0.4 (0.2-1.3) mg/dL AST 25 (14-36) U/L ALT 12 (6-35) U/L Alkaline Phosphatase 67 (38-126) U/L C-Reactive Protein 1.1 (<1.0) mg/dL Total Protein 7.0 (6.3-8.2) g/dL Albumin 4.0 (3.5-5.1) g/dL POC Urine HCG, Qual Negative (Negative) Imaging Data Radiologist's impression: ITS Impressions Face CT 11/02/24 10:21 IMPRESSION: No facial fracture. Fat stranding in the area of the left cheek with swelling. ECG Data EKG #1: ECG completion date: 11/02/24 EKG Interpretation: normal rate, sinus rhythm, no ST changes and normal QT Critical Care Time Critical Care Time Critical Care Time: No Discharge Plan Discharge Clinical Impression: Dental infection Hypertension Qualifiers: Hypertension type: unspecified Qualified Code(s): I10 - Essential (primary) hypertension Patient Disposition: Home Condition: Stable Instructions: Antibiotic Form, Hypertension (ED), Toothache (ED) Additional Instructions: Return to the Emergency Department if you experience fever >101, increasing swelling and redness of your tooth, difficulty swelling, trouble breathing, or any other symptoms that are concerning to you Take antibiotic as prescribed. Tylenol or Ibuprofen as needed for pain. Continue your blood pressure medication as prescribed. You may take an additional dose of Fluconazole on if needed Follow up with your dentist and primary doctor Patient Language: Indian Prescriptions: New amoxicillin-pot clavulanate 875-125 mg tablet 1 tablet PO Q12H 10 Days Qty: 20 0RF fluconazole 150 mg tablet 150 mg PO ONCE Qty: 1 0RF Rx Instructions: as a single dose No Action fluticasone propionate 110 mcg/actuation HFA aerosol inhaler 1 puff inhalation Q12H Qty: 12 1RF omeprazole 20 mg capsule,delayed release(DR/EC) 20 mg PO DAILY Qty: 30 0RF cetirizine [Zyrtec] 10 mg Tablet 10 mg PO DAILY triamcinolone acetonide 0.1 % cream 1 applic topical BID Qty: 30 1RF labetalol 100 mg tablet 200 mg PO DAILY Qty: 180 2RF hydrochlorothiazide 25 mg tablet See Rx Instructions .ROUTE .COMPLEX Qty: 90 2RF Dose Instruction: TAKE 1 TABLET BY MOUTH DAILY Rx Instructions: TAKE 1 TABLET BY MOUTH DAILY albuterol sulfate 90 mcg/actuation HFA aerosol inhaler 1 inh inhalation Q4H PRN (Reason: shortness of breath or wheezing) Qty: 8.5 5RF methylprednisolone [Medrol (Tio)] 4 mg tablets,dose pack See Rx Instructions PO PER PKG DIR 6 Days Qty: 21 0RF Rx Instructions: PO PER PKG DIR fluconazole 150 mg tablet 150 mg PO ONCE Qty: 1 0RF Rx Instructions: as a single dose Follow-up/Referrals: Bucky Fernández MD [Primary Care Provider] -
[2024-11-02 09:53] VITALS: PULSE 83
[2024-11-02] MEDS: HYDROcodone/acetaminophen (*CRX) 5-325 MG TABLET 1 TAB PO (09:53)
[2024-11-02] MEDS: hydroCHLOROthiazide 25 MG TABLET PO (09:53)
[2024-11-02] MEDS: LABETALOL HCL 100 MG TABLET PO (09:53)
[2024-11-02 09:56] LABS: Basophils Absolute Auto 0.1 K/mm3 (0.0-0.1); Basophils Percent Auto 0.6 % (0.2-1.2); Eosinophils Absolute Auto 0.3 K/mm3 (0-0.3); Hematocrit 41.8 % (37.0-47.0); Hemoglobin 12.9 g/dL (12.0-15.0); Immature Granulocyte Absolute 0.02 K/mm3 (0.00-0.031); Immature Granulocyte Percent A 0.2 % (0-0.5); Lymphocytes Absolute Auto 3.15 K/mm3 (0.9-3.2); Lymphocytes Percent Auto 34.7 % (18.3-44.2); Mean Corpuscular HGB Conc 30.9 g/dl (32-36); Mean Corpuscular Hemoglobin 26.2 pg (26-34); Mean Corpuscular Volume 84.8 fl (80-100); Mean Platelet Volume 9.1 fl (7.4-10.4); Monocytes Absolute Auto 1.1 K/mm3 (0.1-0.6); Monocytes Percent Auto 12.2 % (2.6-8.5); Neutrophils Absolute Auto 4.5 K/mm3 (1.3-6.7); Neutrophils Percent Auto 49.3 % (45.5-73.1); Platelet Count Result 329 k/mm3 (150-375); Red Blood Count 4.93 M/mm3 (4.2-5.4); Red Cell Distribution Width 13.6 % (11.5-14.5); White Blood Count 9.1 K/mm3 (4.5-10.0)
[2024-11-02 10:12] LABS: Alanine Aminotransferase 12 U/L (6-35); Alkaline Phosphatase 67 U/L (38-126); Anion Gap 5 mmol/L (4-12); Aspartate Amino Transferase 25 U/L (14-36); Bilirubin,Total 0.4 mg/dL (0.2-1.3); Blood Urea Nitrogen 11 mg/dL (7-17); CRP 1.1 mg/dL (<1.0); Calcium 8.6 mg/dL (8.4-10.2); Carbon Dioxide 30 mmol/L (22-30); Chloride 104 mmol/L (98-107); Estimated CRCL calculation 101 ml/min; Estimated Glomerular Filt Rate > 60; Glucose 105 mg/dL (65-110); Potassium 3.8 mmol/L (3.4-5.0); Sodium 139 mmol/L (137-145)
[2024-11-02 10:45] LABS: Erythrocyte Sedimentation Rate 14 mm/hr (0-20)
[2024-11-02] MEDS: AMPICILLIN SULB 3 GM/NS 100 ML 3 GM/100 ML VIAL IVPB (10:58)
[2024-11-02 11:03] VITALS: BP 180/115; PULSE 83; RESP 22; O2SAT 99
[2024-11-02 11:06] LABS: BEDSIDEPREGUCG Negative (Negative)
[2024-11-02] MEDS: KETOROLAC 15 MG/ML VIAL (*BKC) IV PUSH (11:33)
[2024-11-02] MEDS: FLUCONAZOLE 150 MG TABLET PO (11:33)
--- OUTSIDE RECORDS SUMMARY | 2024-11-02 12:03 | XMS_ITS | Clinical Summary ---
Author Organization [facility] Address [address] [place] [address] [place] [address] Care Team Providers Care Harvest Worker Fruit Name Role Phone Bucky Fernández MD Primary Care Provider [phone] Allergies Active Allergy Reactions Criticality Noted Date [...] Comments Blood Pressure 125/88 06/05/2018 4:10 PM ASSISTANT GUEST SERVICES MANAGER Pulse 81 06/05/2018 4:10 PM ASSISTANT GUEST SERVICES MANAGER Temperature 36.8 C (98.2 F) 06/05/2018 4:10 PM ASSISTANT GUEST SERVICES MANAGER Respiratory Rate - - Oxygen Saturation 98% 06/05/2018 4:10 PM ASSISTANT GUEST SERVICES MANAGER Inhaled Oxygen Concentration - - Weight 92.7 kg (204 lb 4.8 oz) 06/05/2018 4:10 P M ASSISTANT GUEST SERVICES MANAGER Height 165.1 cm (5' 5 ) 06/05/2018 4:10 PM ASSISTANT GUEST SERVICES MANAGER Body Mass Index 34 06/05/2018 4:10 PM ASSISTANT GUEST SERVICES MANAGER Plan of Treatment Health Maintenance Due Date [...] complete this topic Insurance PPO Care Teams Harvest Worker Fruit Relationship Specialty Start Date End Date Bucky Fernández MD [address] [facility] [address] [place] [address] PCP - General Family Practice 02/19/18
--- OUTSIDE RECORDS SUMMARY | 2024-11-02 12:03 | XMS_ITS | Clinical Summary ---
Author Organization [facility] Address [address] [place] [address] Care Team Providers Care Muffle Worker Name Role Phone Bucky Fernández MD Primary Care Provider [phone] Allergies Active Allergy Reactions Criticality Noted Date [...] Every 5 Years 2015 Cervical Cancer Screening [facility] HPV 2015 COVID-19 Vaccine (2023-2 5 season) [...] MRSA 02/13/2017 02/13/2017 Insurance [employer] Care Teams Muffle Worker Relationship Specialty Start Date End Date Bucky Fernández MD [address] [place] [address] PCP - General 10/13/16
--- OUTSIDE RECORDS SUMMARY | 2024-11-02 12:03 | XMS_ITS | Clinical Summary ---
Author Organization [facility] Address [address] [place] [address] Care Team Providers Care Fishing Rod Assembler Name Role Phone Unavailable Primary Care Provider Unavailabl e Social History Tobacco Use Types Packs/Day Years Used Date Smoking Tobacco: Never Assessed Comments Unknown Sex and Gender Information Value Date Recorded Sex Assigned at Not on file Legal Sex Female 12:44 PM SPIRITUAL COUNSELOR Gender Identity Not on file Sexual Orientation [...]
--- OUTSIDE RECORDS SUMMARY | 2024-11-02 12:03 | XMS_ITS | Referral Summary ---
Author Organization [facility] [address] Address [address] [place] [address] Care Team Providers Care Geochemical Laboratory Technician Name Role Phone Bucky Fernández MD Primary [...] (09/24/2022): Added automatically from request for surgery [id number] Usual hyperplasia of lactiferous duct, right Sclerosing [...] on file Legal Sex Female 1:07 AM BRICKLAYER Gender Identity Not on file Sexual Orientation Not on file Last Filed Vital Signs Vital Sign Reading Time Taken Comments Blood Pressure 130/84 06/17/2017 4:07 PM BRICKLAYER Pulse 76 06/17/2017 4:07 PM BRICKLAYER Temperature 36.7 C (98 F) 07/29/2016 12:34 AM BRICKLAYER Respiratory Rate - - Oxygen Saturation 99% 06/17/2017 4:07 PM BRICKLAYER Inhaled Oxygen Concentration - - Weight 90.7 kg (200 lb) 10/11/2022 9:47 AM CDT Height 165.1 cm (5' 5 ) 10/11/2022 9:47 AM CDT Body Mass Index 33.28 10/11/2022 9:47 AM CDT Plan of Treatment Not on file Insurance [facility] Care Teams Geochemical Laboratory Technician Relationship Specialty Start Date End Date Bucky Fernández MD [address] [place] [address] PCP - General 12/12/15
--- OUTSIDE RECORDS SUMMARY | 2024-11-02 12:03 | XMS_ITS | Clinical Summary ---
Author Organization [facility] Address [address] [place] [address] Care Team Providers Care [employer] Compliance Internship Name Role Phone Bucky Fernández MD Primary Care Provider [phone] Source Comments [facility],non-owned Affiliates and Associated Physician Practices is amultiple site organization consisting of ambulatory clinics and hospital sitesin [place], [place], [place] and [place]. This disclosure is being madepursuant to the Care Everywhere program and may not contain all information available regarding this patient. Last updated 18.[facility] Allergies Active Allergy Reactions Criticality Noted Date [...] on file Legal Sex Female 8:47 AM REFRIGERATOR CAR ICER Gender Identity Not on file Sexual Orientation [...] complete this topic Insurance MEDICAID - [place] [facility] MEDICAID - OUT OF STATE Care Teams [employer] Compliance Internship Relationship Specialty Start Date End Date Bucky Fernández MD [address] [place] [address] PCP - General Family Medicine 10/05/19
--- OUTSIDE RECORDS SUMMARY | 2024-11-02 12:03 | XMS_ITS | Clinical Summary ---
Author Organization [facility] [address] Address [address] [place] [address] Care Team Providers Care Motor Overhauler Name Role Phone Bucky Fernández MD Primary [...] (09/24/2022): Added automatically from request for surgery [id number] Usual hyperplasia of lactiferous duct, right Sclerosing [...] on file Legal Sex Female 1:07 AM CLEANER OPERATOR Gender Identity Not on file Sexual Orientation Not on file Obstetrics History Last Filed Vital Signs Vital Sign Reading Time Taken Comments Blood Pressure 130/84 06/17/2017 4:07 PM CLEANER OPERATOR Pulse 76 06/17/2017 4:07 PM CLEANER OPERATOR Temperature 36.7 C (98 F) 07/29/2016 12:34 AM CLEANER OPERATOR Respiratory Rate - - Oxygen Saturation 99% 06/17/2017 4:07 PM CLEANER OPERATOR Inhaled Oxygen Concentration - - Weight 90.7 [...] patient's age to complete this topic Insurance [facility] Care Teams Motor Overhauler Relationship Specialty Start Date End Date Bucky Fernández MD [address] [facility] [address] [place] [address] PCP - General 12/12/15
[2024-11-02 12:05] VITALS: BP 165/112; PULSE 77; RESP 18; O2SAT 98
== END 2024-11-02 12:07 | disposition home or self-care (01) ==
PROVIDERS: Emergency Provider Physician Assistant; PCP Family Medicine
DX: K04.7 Periapical abscess without sinus (principal); I10 Essential (primary) hypertension; J45.909 Unspecified asthma, uncomplicated
CPT/HCPCS: 36415; 70486; 80053; 81025; 85025; 85652; 86140; 93005; 96365; 96375; 99284; A9270; J0295; J1885

== ENCOUNTER 2025-06-02 08:40 | Outpatient (CLI) | payer BC, SELFPAY ==
--- NOTE | ~2025-06-02 | XR_ITS ---
EXAMINATION: XR chest 2V, 06/02/2025 8:51 POULTRY PACKER HISTORY: I51.7 - Cardiomegaly; RECENT PNEUMONIA; HX ASTHMA COMPARISON: No comparisons available. Technique: 2 views obtained. Findings: Mild pulmonary venous congestion. No pneumothorax. Mild cardiomegaly. Mediastinal and hilar contours are within normal limits. Bony thorax no acute abnormality. Impression: Mild CHF Reviewed, dictated and finalized at location P. TRY PACKER Impression: Mild CHF
== END 2025-06-02 08:41 | disposition home or self-care (01) ==
LOC: MICIMG 08:43
PROVIDERS: PCP Family Medicine; Visit Provider Physician Assistant Medical
DX: I51.7 Cardiomegaly (principal); I50.9 Heart failure, unspecified
CPT/HCPCS: 71046

== ENCOUNTER 2025-07-06 14:18 | Outpatient (CLI) | payer BC, SELFPAY ==
--- NOTE | 2025-07-06 14:33 | ECHO_ITS ---
Patient Info Name: Leanne Lopez Age: 39 years : 1985 Gender: Female Ht: 65 in Wt: 220 lbs BSA: 2.18 m2 HR: 91 bpm BP: 180 / 137 mmHg Heart Rhythm: Sinus Rhythm Technical Quality: Good Exam Date: 07/06/2025 2:39 PM Patient Status: O Admit Date: 07/06/2025 Exam Type: CA echo doppler color flow Complete two-dimensional, color flow and Doppler transthoracic echocardiogram is performed. Leathersmith: Kenya Tejeda Attending Provider: Mirian Mata Summary 1. Complete two-dimensional, color flow and Doppler transthoracic echocardiogram is performed. 2. Left ventricular chamber dimension is normal. 3. Left ventricular systolic function is normal, estimated at 60-65. 4. The left ventricular diastolic function is grade I diastolic dysfunction. 5. E/e' 19 is elevated. 6. Left atrial chamber dimension is moderately enlarged. 7. There is mild to moderate aortic valve regurgitation. 8. There is moderate mitral valve regurgitation. 9. There is mild tricuspid valve regurgitation. 10. No pulmonary hypertension, estimated pulmonary arterial systolic pressure is 24 mmHg. Left Ventricle E/e' 19 is elevated. Left ventricular chamber dimension is normal. Left ventricular systolic function is normal, estimated at 60-65. The left ventricular diastolic function is grade I diastolic dysfunction. Right Ventricle Right ventricular chamber dimension is normal. Right ventricular systolic function is normal. Left Atria Left atrial chamber dimension is moderately enlarged. Right Atria Right atrial chamber dimension is normal. Aortic Valve The aortic valve is trileaflet. There is no aortic valve stenosis. There is mild to moderate aortic valve regurgitation. Pulmonic Valve There is no pulmonic regurgitation. Mitral Valve There is no mitral valve stenosis. There is moderate mitral valve regurgitation. Tricuspid Valve There is mild tricuspid valve regurgitation. No pulmonary hypertension, estimated pulmonary arterial systolic pressure is 24 mmHg. Pericardium/Pleural There is no pericardial effusion. Inferior Vena Cava Normal inferior vena cava with >50% collapse upon inspiration consistent with normal right atrial pressure, 5 mmHg. Aorta The aortic root size at the sinus of Valsalva is normal. Left Ventricular Outflow Tract Name Value Normal LVOT 2D LVOT Diameter 2.0 cm LVOT Doppler LVOT Peak Velocity 108 cm/s LVOT Peak Gradient 5 mmHg LVOT Mean Gradient 3 mmHg LVOT VTI 18 cm LVOT VTI/AV VTI Ratio 0.5 LVOT Stroke Volume 54 ml LVOT CO 5.3 l/min LVOT CI 2.4 l/min/m2 Pulmonic Valve Name Value Normal RVOT Doppler RVOT Peak Velocity 114 cm/s RVOT Peak Gradient 5 mmHg PV Doppler PV Peak Velocity 128 cm/s PV Peak Gradient 7 mmHg Mitral Valve Name Value Normal MV Regurgitation Doppler MR Peak Gradient 152 mmHg MV Diastolic Function MV E Peak Velocity 113 cm/s MV A Peak Velocity 153 cm/s MV E/A 0.7 MV Decel Time (PW) 153 ms MV Annular TDI MV E/e' (Septal) 17.6 MV E/e' (Lateral) 22.2 MV E/e' (Average) 19.9 Tricuspid Valve Name Value Normal TV Regurgitation Doppler TR Peak Velocity 215 cm/s TR Peak Gradient 19 mmHg Estimated PAP/RSVP RA Pressure 5 mmHg <=5 PA Systolic Pressure 24 mmHg <36 RV Systolic Pressure 24 mmHg <36 TV Annular TDI TV Lateral Cnythia s' Velocity 11.4 cm/s >=9.5 Aorta Name Value Normal Ascending Aorta Ao Root Diameter (MM) 2.6 cm Ao Root Diam Index (MM) 1.2 cm/m2 Aortic Valve Name Value Normal AV Doppler AV Peak Velocity 202 cm/s AV Peak Gradient 16 mmHg AV Mean Gradient 9 mmHg AV VTI 32 cm AV Area (Cont Eq VTI) 1.7 cm2 >=3.0 AV Area (Cont Eq Brian) 1.6 cm2 AV DI (Brian) 0.54 AV Regurgitation 2D LVOT Area 3.1 cm2 Ventricles Name Value Normal LV Dimensions 2D/MM IVS Diastolic Thickness (2D) 1.1 cm 0.6-1.0 LVID Diastole (2D) 4.8 cm 3.8-5.2 LVIW Diastolic Thickness (2D) 1.0 cm 0.6-0.9 LVID Systole (2D) 3.1 cm 2.2-3.5 LVOT Diameter 2.0 cm LV Mass (2D Cubed) 187.08 g 67.00-162.00 LV Mass Index (2D Cubed) 86 g/m2 43-95 Relative Wall Thickness (2D) 0.43 <=0.42 LV Fractional Shortening/Ejection Fraction 2D/MM LV Fractional Shortening (2D) 35 % 27-45 LV EF (2D Teichholz) 65 % LV Diastolic Volume (4C MOD) 129 ml LV EF (4C MOD) 61 % LV Diastolic Volume (2C MOD) 81 ml LV EF (2C MOD) 61 % LV Diastolic Volume (BP MOD) 104 ml 46-106 LV Diastolic Volume Index (BP MOD) 48 ml/m2 29-61 LV Systolic Volume (BP MOD) 40 ml 14-42 LV Systolic Volume Index (BP MOD) 18 ml/m2 8-24 LV EF (BP MOD) 62 % 54-74 LV Diastolic Length (4C) 9.3 cm LV Systolic Length (4C) 7.5 cm LV Stroke Volume (4C MOD) 79 ml Atria Name Value Normal LA Dimensions LA Dimension (MM) 4.0 cm 2.7-3.8 LA Volume (4C A-L) 88 ml LA Volume (BP A-L) 90 ml RA Dimensions RA Area (4C) 18.1 cm2 <=18.0 Report Signatures
--- OUTSIDE RECORDS SUMMARY | 2025-07-06 14:38 | XMS_ITS | Clinical Summary ---
Author Organization [facility] Address [address] [place] [address] Care Team Providers Care Auto Wheel Alignment Specialist Name Role Phone Bucky Fernández MD Primary Care Provider [phone] Allergies Active Allergy Reactions Criticality Noted Date [...] mastodynia 02/19/2018 Abnormal ultrasound of breast 02/19/2018 Immunizations Immunization Administration Dates Next Due Influenza Seasonal Unspecified Formulation IM Social History Tobacco Use Types Packs/Day Years Used Date Smoking Tobacco: Former Cigarettes 6 0 12/06/2009 - 12/07/2015 Smokeless Tobacco: Never [...] Comments Blood Pressure 125/88 06/05/2018 4:10 PM AUDIOVISUAL AIDS TECHNICIAN Pulse 81 06/05/2018 4:10 PM AUDIOVISUAL AIDS TECHNICIAN Temperature 36.8 C (98.2 F) 06/05/2018 4:10 PM AUDIOVISUAL AIDS TECHNICIAN Respiratory Rate - - Oxygen Saturation 98% 06/05/2018 4:10 PM AUDIOVISUAL AIDS TECHNICIAN Inhaled Oxygen Concentration - - Weight 92.7 kg (204 lb 4.8 oz) 06/05/2018 4:10 P M AUDIOVISUAL AIDS TECHNICIAN Height 165.1 cm (5' 5) 06/05/2018 4:10 PM AUDIOVISUAL AIDS TECHNICIAN Body Mass Index 34 06/05/2018 4:10 PM AUDIOVISUAL AIDS TECHNICIAN Plan of Treatment Health Maintenance Due Date Last Done Comments DTAP/TDAP/TD VACCINES (1 - Tdap) 2004 HEPATITIS B VACCINES (1 of 3 - 19+ 3-dose series) 07/08 HPV/Cotest (21-29) 2006 CERVICAL CANCER SCREENING 2015 HPV/Cotest (30-65) 2015 PAP SMEAR 2015 INFLUENZA VACCINE Completed 05/08/2025 HPV VACCINES (No Doses Required) Completed Insurance PPO Care Teams Auto Wheel Alignment Specialist Relationship Specialty Start Date End Date Bucky Fernández MD [address] [facility] [address] [place] [address] PCP - General Family Practice 02/19/18
--- OUTSIDE RECORDS SUMMARY | 2025-07-06 14:38 | XMS_ITS | Clinical Summary ---
Author Organization [facility] Address [address] [place] [address] Care Team Providers Care Life Science Research Assistant Name Role Phone Unavailable Primary Care Provider Unavailabl e Social History Tobacco Use Types Packs/Day Years Used Date Smoking Tobacco: Never Assessed Comments Unknown Sex and Gender Information Value Date Recorded Sex Assigned at Not on file Legal Sex Female 12:44 PM GLASSIE Gender Identity Not on file Sexual Orientation Not on file Plan of Treatment Health Maintenance Due Date Last Done Comments Hepatitis C Virus (HCV) Screening 1985 TdaP Immunization 1985 Hepatitis B Immunization (1 of 3 - 19+ 3-dose series) 2004 Pap Smear 2006 Human Papillomavirus (HPV) Immunization (1 - 3-dose SCDM series) 2012 Cervical Cancer Screening (CCS) 2015 HPV/Cotest 2015 Influenza Immunization (#1) 2025 SARS-COV-2 Immunization ( season) 2025 09/23/2020 Respiratory Syncytial Virus (RSV) Immunization (Adult) [...]
--- OUTSIDE RECORDS SUMMARY | 2025-07-06 14:38 | XMS_ITS | Clinical Summary ---
Author Organization [facility] Address [address] [place] [address] Care Team Providers Care Streetcar Repairer Name Role Phone Bucky Fernández MD Primary Care Provider [phone] Allergies Active Allergy Reactions Criticality Noted Date [...] 2:40 PM CDT Height 165.1 cm (5' 5) 11/04/2023 2:40 PM CDT Body Mass Index 33.28 11/04/2023 2:40 PM CDT Plan of Treatment Health Maintenance Due Date Last Done Comments Cervical Cancer Screening Pa p Smear (Age 30 to 64) Every 3 Years 1985 Annual Physical 1988 Hepatitis C 2003 DTaP, Tdap and Td Vaccines ( 1 - Tdap) 2004 Hepatitis B Vaccines (1 of 3 - 19+ 3-dose series) 2004 HPV Vaccines (1 - 3-dose SCD M series) 2012 Cervical Cancer Screening Pa p with HPV Testing (Age 30 to 64) Every 5 Years 2015 Cervical Cancer Screening [facility] HPV 2015 COVID-19 Vaccine ( - 2024-2 6 season) 2025 10/14/2020, 09/23/2020 Influenza Adult (#1) 2025 Hepatitis A Vaccines Aged Out No long er eligible based on patient's age to complete this topic Meningococcal B Vaccine Aged Out No l onger eligible based on patient's age to complete this topic Meningococcal Vaccine Aged Out No kamron mitchell eligible based on patient's age to complete this topic Pneumococcal Vaccine: Pediatrics (0 to 5 Years) and At-Risk Patients (6 to 49 Years) Aged Out No longer eligible b ased on patient's age to complete this topic RSV Immunizations Under 20 Months Aged Out No longer eligible b ased on patient's age to complete this topic Additional Health Concerns Infection Onset Date Last Indicated 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
--- OUTSIDE RECORDS SUMMARY | 2025-07-06 14:38 | XMS_ITS | Encounter Summary ---
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 Measuring Machine Operator Name Role Phone Bucky Fernández MD Primary Care Provider Encounter Details Date Type Department Care Team (Late st Contact Info) Description 05/01/2018 Orders Only [facility] Health Information Management [address] [place] [id number] Scanning, Provider Social History Tobacco Use Types Packs/Day Years Used Date Smoking Tobacco: Former Smokeless Tobacco: Never Alcohol Use Standard Drinks/Week Comments Yes 0 (1 standard drink = 0.6 oz pur e alcohol) Comments Unknown Sex and Gender Information Value Date Recorded Sex Assigned at Not on file Legal Sex Female 1:07 AM 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 Gender Identity Not on file Sexual Orientation Not on file documented as of this encounter Plan of Treatment Not on file documented as of this encounter Procedures Procedure Name Priority Date/Time Associated Diagnosis Comments SCAN - RADIOLOGY/IMAGING 05/01/2018 documented in this encounter Results * SCAN - RADIOLOGY/IMAGING (05/01/2018) Anatomical Region Laterality Modality Other us Provider Scanning Final Result documented in this encounter Visit Diagnoses Not on filedocumented in this encounter Additional Health Concerns Infection Onset Date Last Indicated Resolved Time COVID: Suspected 05/30/2025 05/30/2025 05/30/2025 5:47 PM 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 documented as of this encounter Care Teams Hide Measuring Machine Operator Relationship Specialty Start Date End Date Bucky Fernández MD [address] [address] PCP - General 12/12/15 documented as of this encounter
--- OUTSIDE RECORDS SUMMARY | 2025-07-06 14:38 | XMS_ITS | Clinical Summary ---
Author Organization [facility] [address] Address [address] [place] [address] Care Team Providers Care Press Loader Name Role Phone Bucky Fernández MD Primary [...] Take 1 capsule by mouth daily Active amoxicillin-cla vulanate (AUGMENTIN) 875-125 mg per tablet Take 1 tablet by mouth every 12 (twelve) hours for 7 days 14 tablet 5 06/06/20 25 Active Problems Problem Noted Date Diagnosed Date Mass of left breast 10/11/2022 Disorder of shoulder 04/11/2018 Chronic pain of both shoulders 04/11/2018 Back pain 04/11/2018 Macromastia 03/05/2018 Overview (09/24/2022): Added automatically from request for surgery [id number] Usual hyperplasia of lactiferous duct, right Sclerosing adenosis, 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 02/19/2018 Abnormal ultrasound of breast 02/19/2018 Abnormal mammogram 02/19/2018 Hypertension 11/25/2015 Overview (10/11/2016): Labile hypertension Syncope and collapse 11/25/2015 Overview (10/11/2016): Syncope and collapse Orthostasis 11/25/2015 Overview (10/11/2016): Orthostasis Goiter 10/12/2014 Overview (10/11/2016): Goiter Adiposity 10/12/2014 Overview (10/11/2016): Obesity Malignant hypertension 08/17/2014 Overview (10/11/2016): Malignant hypertension Encounters Date Type Department Care Team Description 06/01/2025 Telephone [facility] [address] [place] [address] Leydi Baker NP 05/30/2025 4:58 PM ARCHITECT NAVAL - 05/30/2025 7:45 PM [facility] Emergency [facility] Emergency Department [address] [place] [address] Moderate asthma with exacerbation, unspecified whether persistent (Primary Dx); Pneumonia of right lower lobe due to infectious organism; Elevated blood pressure reading Discharge Disposition: Discharge to home or self care from Last 3 Months Surgical History Surgery Date Site/Laterality Comments BLADDER [...] drink = 0.6 oz pur e alcohol) Personal Safety Answer Date Recorded Have you ever been in or are you currently in a harmful physical or emotional relationship or is someone making you feel afraid or unsafe? Denies 05/30/2025 Comments Unknown Sex and Gender Information Value Date Recorded Sex Assigned at Not on file Legal Sex Female 1:07 AM ARCHITECT NAVAL Gender Identity Not on file Sexual Orientation Not on file Last Filed Vital Signs Vital Sign Reading Time Taken Comments Blood Pressure 146/88 05/30/2025 7:25 PM ARCHITECT NAVAL Pulse 91 05/30/2025 7:25 PM ARCHITECT NAVAL Temperature 37.1 C (98.8 F) 05/30/2025 4:31 PM ARCHITECT NAVAL Respiratory Rate 20 05/30/2025 7:25 PM ARCHITECT NAVAL Oxygen Saturation 97% 05/30/2025 7:25 PM ARCHITECT NAVAL Inhaled Oxygen Concentration - - Weight 102.5 kg (225 lb 15.5 oz) 05/30/2025 4:46 PM ARCHITECT NAVAL Height 165.1 cm (5' 5) 05/30/2025 4:46 PM ARCHITECT NAVAL Body Mass Index 37.6 05/30/2025 4:46 PM ARCHITECT NAVAL Plan of Treatment Health Maintenance Due Date Last Done Comments Cervical Cancer Screening 1985 Depression Screening 1985 Hepatitis C Screening 1985 DTaP/Tdap/Td Vaccine (1 - Tdap) 1996 Varicella Vaccines (1 of 2 - 13+ 2-dose series) 1998 Hepatitis B Screening 2003 Regular Well Visit/Exam 18-64 2003 Pneumococcal vaccine <65 (1 of 2 - PCV) 2004 HPV Vaccines (1 - 3-dose SCDM series) 2012 Covid-19 Vaccine (3 - season) 03/08/202503/2021, 09/23/2020 Influenza Vaccine Completed 05/08/2025 Procedures Procedure Name Priority Date/Time Associated Diagnosis Comments XR CHEST PA LATERAL 2 VIEWS ED 05/30/2025 5:07 PM ARCHITECT NAVAL EGFR STAT 05/30/2025 4:59 PM ARCHITECT NAVAL DIFFERENTIAL AUTO STAT 05/30/2025 4:5 9 PM ARCHITECT NAVAL TROPONIN T HIGH-SENSITIVITY SERIES (BASELINE, 2HR, 4HR, 6HR) STAT 05/30/2025 4:59 PM ARCHITECT NAVAL CBC WITH AUTO DIFFERENTIAL STAT 05/30/2025 4:59 PM ARCH[employer]ECT [facility]AL COMPREHENSIVE METABOLIC PANEL STAT 05/30/2025 4:59 PM ARCHITECT NAVAL INFLUENZA A/B, RSV, AND COVID-19 PCR STAT 05/30/2025 4:59 PM ARCHITECT NAVAL ECG 12-LEAD STAT 05/30/2025 4:54 PM ARCHITECT NAVAL from Last 3 Months Results * XR Chest PA Lateral 2 Views (If patient hemodynamically stable and ambulatory) (05/30/2025 5:07 PM ARCHITECT NAVAL) Anatomical Region Laterality Modality Body, Chest N/A Computed Radiogr aphy 05/30/2025 5:39 PM ARCHITECT NAVAL Impressions 05/30/2025 5:39 PM ARCHITECT NAVAL 1. Mild haziness medial aspect right lung base. Early infiltrate/pneumonia is a consideration. 2. Cardiomegaly. Normal pulmonary vasculature. Electronically signed by: Bryan Pascual M.D. Narrative 05/30/2025 5:39 PM ARCHITECT NAVAL EXAMINATION: XR CHEST PA LATERAL 2 VIEWS HISTORY: Shortness of breath TECHNIQUE: 2 view chest COMPARISON: 04/17/2018 FINDINGS: Mild tortuosity of the aorta. Mild cardiomegaly. Pulmonary vascularity appears normal. There is mild increased opacity of the medial aspect of the right lower chest. Infiltrate/pneumonia is a consideration. Costophrenic angles are sharp. No acute osseous findings. Procedure Note Bryan Pascual MD - 05/30/2025 EXAMINATION: XR CHEST PA LATERAL 2 VIEWS HISTORY: Shortness of breath TECHNIQUE: 2 view chest COMPARISON: 04/17/2018 FINDINGS: Mild tortuosity of the aorta. Mild cardiomegaly. Pulmonary vascularity appears normal. There is mild increased opacity of the medial aspect of the right lower chest. Infiltrate/pneumonia is a consideration. Costophrenic angles are sharp. No acute osseous findings. IMPRESSION: 1. Mild haziness medial aspect right lung base. Early infiltrate/pneumonia is a consideration. 2. Cardiomegaly. Normal pulmonary vasculature. Electronically signed by: Bryan Pascual M.D. Milton Brown MD IMG XR PROCEDURES Final Re sult * Troponin T high-sensitivity series (baseline, 2hr, 4hr, 6hr) (05/30/2025 4:59 PM ARCHITECT NAVAL) [facility] Trop T hs 8 <=14 ng/L Comment: Interpretive Data For further hscTnT resources including the diagnostic algorithm and an aid in interpretation, copy and paste this link: https://nrl.testcatalog.org/show/hsTrop Current Interpretive Data last revised 2020. Testing performed by: [address] [address] Blood 05/30/2025 4:59 PM ARCHITECT NAVAL 05/30/2025 5:03 PM ARCHITECT NAVAL Milton Brown MD LAB BLOOD ORDERABLES Final Result [facility] [address] [facility] Department [place] [address] * Influenza A/B, RSV, and COVID-19 PCR Nasopharyngeal (05/30/2025 4:59 PM ARCHITECT NAVAL) [facility] COVID-19 RNA Negative Negative Comment:Testing performed by : [address] [address] Influenza A RNA Negative Negative [facility] Comment:Testing performed by : [address] [address] Influenza B RNA Negative Negative [facility] Comment:Testing performed by : [facility], [address] [place] [address]., [address] RSV RNA Negative Negative [facility] Comment: Interpretive data: Testing performed by [facility]. This test is performed using the [employer] Xpert Xpress CoV-2/Flu/RSV plus assay. This is a multiplex, real-time reverse transcriptase PCR assay intended for the qualitative detection of nucleic acid from SARS-CoV-2, influenza A, influenza B, and respiratory syncytial virus. This assay has been cleared by the [place] Food and Drug administration. The performance characteristics have been verified by the [facility]. Results must be considered in the clinical context, and a negative result does not rule out infection. Interpretive Data last revised 2023 Testing performed by: [facility], [address] [place] [address]., [address] Nasopharyngeal 05/30/2025 4: 59 PM ARCHITECT NAVAL 05/30/2025 5:03 PM ARCHITECT NAVAL Narrative [facility] - 05/30/2025 5:46 PM ARCHITECT NAVAL Is the Patient experiencing symptoms consistent with COVID?->Yes us Milton Brown MD LAB MICROBIOLOGY - GENERAL ORDERABLES Final Result [facility] [address] [facility] [place] [address] * eGFR (05/30/2025 4:59 PM ARCHITECT NAVAL) eGFR >90 >=60 mL/min/1. 73 m2 Comment: Interpretive Data Reference Interval Normal >/= 90 mL/min/1.73m2 Mildly decreased* 60 - 89 mL/min/1.73m2 Mildly to moderately decreased 45 - 59 mL/min/1.73m2 Moderately to severely decreased 30 - 44 mL/min/1.73m2 Severely decreased 15 - 29 mL/min/1.73m2 Kidney Failure < 15 mL/min/1.73m2 *Relative to young adult level Estimated glomerular filtration rate is determined by the 2020 CKD-EPI equation recommended by the National Kidney Foundation (A Unifying Approach to GFR Estimation: Recommendations of the NKF-ASK Task Force on Reassessing the Inclusion of Race in Diagnosing Kidney Disease, JASN 2020). The CKD-EPI equation should not be used for patients with unstable renal function and has not been validated in children and those over 70. Current interpretive data was last reviewed 2021. Testing performed by: [address] [address] Blood 05/30/2025 4:59 PM ARCHITECT NAVAL 05/30/2025 5:03 PM ARCHITECT NAVAL us Milton Brown MD LAB BLOOD ORDERABLES Final Result [facility] [address] [facility] Department [place] [address] * (ABNORMAL) Differential, auto (05/30/2025 4:59 PM ARCHITECT NAVAL) Neutrophil abs 9.43(H) 1.50 - 6.50 K/cumm Comment:Testing performed by : [address] [address] Imm gran abs 0.07 0.00 - 0.10 K/cumm [facility] Comment:Testing performed by : [address] [address] Lymphocyte abs 3.08 0.80 - 3.30 K/cumm [facility] Comment:Testing performed by : [address] [address] Monocyte abs 1.22(H) 0.20 - 0.80 K/cumm [facility] Comment:Testing performed by : [address] [address] Eosinophil abs 0.16 0.00 - 0.50 K/cumm [facility] Comment:Testing performed by : [address] [address] Basophil abs 0.06 0.00 - 0.10 K/cumm [facility] Comment:Testing performed by : [address] [address] Neutrophil pct 67.3 % [facility] Comment: Interpretive Data Percent cell count reference ranges are not reported, since discordance with absolute values may lead to misinterpretation of CBC data. Current Interpretive Data was last revised on 2017. Testing performed by: [address] [address] Imm gran pct 0.5 % [facility] Comment: Interpretive Data Percent cell count reference ranges are not reported, since discordance with absolute values may lead to misinterpretation of CBC data. Current Interpretive Data was last revised on 2017. Testing performed by: [address] [address] Lymphocyte pct 22.0 % [facility] Comment: Interpretive Data Percent cell count reference ranges are not reported, since discordance with absolute values may lead to misinterpretation of CBC data. Current Interpretive Data was last revised on 2017. Testing performed by: [address] [address] Monocyte pct 8.7 % [facility] Comment: Interpretive Data Percent cell count reference ranges are not reported, since discordance with absolute values may lead to misinterpretation of CBC data. Current Interpretive Data was last revised on 2017. Testing performed by: [address] [address] Eosinophil pct 1.1 % [facility] Comment: Interpretive Data Percent cell count reference ranges are not reported, since discordance with absolute values may lead to misinterpretation of CBC data. Current Interpretive Data was last revised on 2017. Testing performed by: [address] [address] Basophil pct 0.4 % [facility] Comment: Interpretive Data Percent cell count reference ranges are not reported, since discordance with absolute values may lead to misinterpretation of CBC data. Current Interpretive Data was last revised on 2017. Testing performed by: [address] [address] Blood 05/30/2025 4:59 PM ARCHITECT NAVAL 05/30/2025 5:03 PM ARCHITECT NAVAL us Milton Brown MD LAB BLOOD ORDERABLES Final Result [facility] [address] [facility] Department [place] [address] * (ABNORMAL) CBC with auto differential (05/30/2025 4:59 PM ARCHITECT NAVAL) WBC 14.02(H) 3.80 - 9.90 K/cumm Comment:Testing performed by : [address] [address] Hgb 12.7 11.9 - 15.5 g/dL [facility] Comment:Testing performed by : [address] [address] Hct 39.4 35.6 - 45.5 % [facility] Comment:Testing performed by : [address] [address] Plt 233 150 - 400 K/cumm [facility] Comment:Testing performed by : [address] [address] MPV 9.7 9.1 - 12.3 fL [facility] Comment:Testing performed by : [address] [address] RBC 4.84 3.90 - 5.20 M/cumm [facility] Comment:Testing performed by : [address] [address] MCV 81.4 81.3 - 96.4 fL [facility] Comment:Testing performed by : [address] [address] MCH 26.2(L) 27.1 - 33.3 pg [facility] Comment:Testing performed by : [address] [address] MCHC 32.2(L) 32.3 - 35.7 g/dL [facility] Comment:Testing performed by : [address], [address] RDW CV 13.2 11.1 - 14.9 % [facility] Comment:Testing performed by : [address] [address] RDW SD 39.1 35.7 - 48.1 fL [facility] Comment:Testing performed by : [address] [address] NRBC abs 0.00 0.00 - 0.01 K/cumm [facility] Comment:Testing performed by : [address] [address] Blood 05/30/2025 4:59 PM ARCHITECT NAVAL 05/30/2025 5:03 PM ARCHITECT NAVAL Milton Brown MD LAB BLOOD ORDERABLES Final Result [facility] [address] [facility] [place] [address] * Comprehensive metabolic panel (05/30/2025 4:59 PM ARCHITECT NAVAL) Sodium 135 135 - 145 mmol/L Comment:Testing performed by : [address] [address] Potassium, pl 4.7 3.3 - 4.9 mmol/L [facility] Comment: Hemolyzed; Potassium value may be falsely elevated by as much as 1.0 mmol/L. Suggest redraw and reanalysis. Testing performed by: [address] [address] Chloride 104 97 - 110 mmol/L [facility] Comment:Testing performed by : [address] [address] CO2 22 22 - 32 mmol/L [facility] Comment:Testing performed by : [address] [address] Anion gap 9 2 - 15 mmol/L [facility] Comment:Testing performed by : [address] [address] BUN 11 6 - 25 mg/dL [facility] Comment:Testing performed by : [address] [address] Creatinine 0.70 0.60 - 1.10 mg/dL [facility] Comment:Testing performed by : [address] [address] Glucose 114 70 - 199 mg/dL [facility] Comment: Interpretive Data Fasting glucose >/= 126 mg/dl is diagnostic for diabetes. Fasting is defined as no caloric intake for at least 8 hours. Fasting glucose between 100 mg/dl to 125 mg/dl is diagnostic of prediabetes. In a patient with classic symptoms of hyperglycemia or hyperglycemic crisis, a random glucose >/= 200 mg/dl is diagnostic for diabetes. In the absence of unequivocal hyperglycemia, results should be confirmed by repeat testing. The classification and Diagnosis of Diabetes Diabetes Care 2021; 46: S19-S40. Current interpretive data was last revised 2022. Testing performed by: [address] [address] Calcium 8.9 8.5 - 10.3 mg/dL [facility] Comment:Testing performed by : [address] [address] Bilirubin, total 0.8 0.1 - 1.2 mg/dL [facility] Comment:Testing performed by : [address] [address] Protein, pl 6.9 6.5 - 8.5 g/dL [facility] Comment:Testing performed by : [address] [address] Albumin 3.8 3.5 - 5.0 g/dL [facility] Comment:Testing performed by : [address] [address] Alk phos 56 40 - 130 Units/L [facility] Comment:Testing performed by : [address] [address] ALT 9 7 - 45 Units/L [facility] Comment:Testing performed by : [address] [address] AST 31 10 - 45 Units/L [facility] Comment: Hemolyzed; result may be falsely elevated Testing performed by: [address] [address] Blood 05/30/2025 4:59 PM ARCHITECT NAVAL 05/30/2025 5:03 PM ARCHITECT NAVAL Milton Brown MD LAB BLOOD ORDERABLES Final Result [facility] [address] [facility] [place] [address] * ECG 12 lead (05/30/2025 4:54 PM ARCHITECT NAVAL) Ventricular Rate EKG/Min 85 BPM [facility] Atrial Rate 85 BPM [facility] MD-Interval (MSEC) 154 ms [facility] QRS-Interval (MSEC) 86 ms [facility] QT-Interval (MSEC) 380 ms [facility] QTc 452 ms [facility] P [place] 31 degrees [facility] R [place] 2 degrees [facility] T [place] 4 degrees [facility] Diagnosis Normal sinus rhythm Minimal voltage criteria for LVH, may be normal variant T-wave changes When compared with ECG of 28-FEB-2010 07:48, T-wave changes are increased. Confirmed by SULTAN WALLACE M.D. ([id number]) on 05/31/2025 5:01:32 PM [facility] 05/30/2025 4:54 PM ARCHITECT NAVAL 05/31/2025 5:01 PM ARCHITECT NAVAL us Milton Brown MD ECG ORDERABLES Final Resu lt Performing Organization Address City/[facility] Co de Phone Number [facility] from Last 3 Months Insurance [facility] * Guarantor: Leanne Lopez Account Type Relation to Patient Date of Phone Billing Address Personal/Family Self 1985 [address] [facility] [place] [address] [place] * Guarantor: Leanne Lopez Account Type Relation to Patient Date of Phone Billing Address Personal/Family Self 1985 [id number] [facility] [place] [address] Care Teams Press Loader Relationship Specialty Start Date End Date Bucky Fernández MD [address] [facility] [address] [place] [address] PCP - General 12/12/15
== END 2025-07-06 14:19 | disposition home or self-care (01) ==
PROVIDERS: PCP Physician Assistant Medical; Visit Provider Physician Assistant Medical
DX: R93.1 Abnormal findings on diagnostic imaging of heart and coronary circulation (principal); I51.7 Cardiomegaly
CPT/HCPCS: 93306